=== PATIENT | female | born 1940 | race Caucasian/White ===

== ENCOUNTER 2019-04-17 15:39 | Inpatient (IN) ==
[2019-04-17] MEDS ORDERED: SODIUM CHLORIDE 0.9% 500 ML IV ONE (16:10)
--- NOTE | 2019-04-17 16:29 | Emergency Department Note ---
Entered by Amy Chawla acting as a scribe for History of Present Illness General Chief complaint: Illness Stated complaint: WEAKNESS, DIARRHEA, BACK PAIN Time Seen by Provider: 04/17/19 16:04 History of Present Illness Provider complaint: illness Onset (ago): week(s) 1 Pain Consistency: + other (episode) Maximum Pain Intensity: 5 Quality: + other (illness) Relieved By: + none Associated symptoms: + headaches (back of head), + weakness (can not walk anymore) and + other (nausea, constipation, dizziness, not hydrating well, been taking antidiarrheal medication and stool softeners, rectum feels too small to move her bowels ) The patient is a 79 year old female who presents to the ED with complaints of an episode of an illness that started 1 week ago. Per daughter, the patient has been much weaker than usual and has had diarrhea, constipation, nausea and dizziness. Per daughter, the patient is so weak that she can barely walk. The patient states that she also has a headache in the back of her head. The patient notes that she has also not been hydrating well. Per daughter, they have been giving the patient antidiarrheal medication but then they found out that the patient has been taking stool softeners on her own because she believes she is constipated. The patient states that she believes there is something wrong with her rectum because it feels too small to move her bowels. The patient notes that nothing is relieving her of these symptoms. Home Medications Home Medications Medication Instructions Recorded Confirmed Type aspirin 325 mg PO DAILY 04/17/19 04/17/19 History Allergies Allergy/AdvReac Type Severity Reaction Status Date / Time No Known Allergies Allergy Unverified 04/17/19 17:18 Past Med/Surg History Medical History Tremor Social History Preferred Language: Danish Communication Ability: Effective Medical Collections Representative Required: Yes Current Living Situation: Family Other Information That Helps Us Care for You: No Feels Safe at Home: Yes Smoking Status: Never smoker Hx Alcohol Use: No Hx Substance Use: No Review of Systems See HPI for pertinent positives & negatives. and A total of 10 systems reviewed and were otherwise negative Physical Exam Vital Signs Vital Signs - 24 hr 04/17/19 15:44 04/17/19 15:48 04/17/19 15:50 Temperature Temperature Source Pulse Rate 84 79 Pulse Rate [Finger] Pulse Rate from SpO2 Sensor 83 80 80 Pulse Rhythm [Finger] Respiratory Rate 26 H 14 Respiratory Effort / Characteristics Respiratory Depth Blood Pressure 135/75 Blood Pressure [Right Arm] Blood Pressure Mean 92 Blood Pressure Mean [Right Arm] Blood Pressure Position [Right Arm] Pulse Oximetry 97 94 Oxygen Delivery Method Room Air Room Air Room Air Sepsis Recent Fever Within 48 Hours Sepsis New/Unexplained Change in Mental Status Sepsis Action Taken by Nursing 04/17/19 15:53 04/17/19 16:00 04/17/19 16:01 Temperature 36.8 C Temperature Source Oral Pulse Rate 79 81 96 H Pulse Rate [Finger] 79 Pulse Rate from SpO2 Sensor 83 84 Pulse Rhythm [Finger] Respiratory Rate 19 16 24 Respiratory Effort / Characteristics Respiratory Depth Blood Pressure 135/75 110/70 Blood Pressure [Right Arm] 135/75 Blood Pressure Mean 95 74 Blood Pressure Mean [Right Arm] 95 Blood Pressure Position [Right Arm] Pulse Oximetry 96 99 95 Oxygen Delivery Method Room Air Room Air Room Air Sepsis Recent Fever Within 48 Hours No Sepsis New/Unexplained Change in Mental Status No Sepsis Action Taken by Nursing No Action Required 04/17/19 16:10 04/17/19 16:20 04/17/19 16:30 Temperature Temperature Source Pulse Rate 77 172 H 79 Pulse Rate [Finger] Pulse Rate from SpO2 Sensor 77 78 78 Pulse Rhythm [Finger] Respiratory Rate 20 22 23 Respiratory Effort / Characteristics Respiratory Depth Blood Pressure 113/70 Blood Pressure [Right Arm] Blood Pressure Mean 80 Blood Pressure Mean [Right Arm] Blood Pressure Position [Right Arm] Pulse Oximetry 97 97 97 Oxygen Delivery Method Room Air Room Air Room Air Sepsis Recent Fever Within 48 Hours Sepsis New/Unexplained Change in Mental Status Sepsis Action Taken by Nursing 04/17/19 16:40 04/17/19 16:57 04/17/19 17:00 Temperature Temperature Source Pulse Rate 77 76 78 Pulse Rate [Finger] 82 Pulse Rate from SpO2 Sensor 72 76 79 Pulse Rhythm [Finger] Respiratory Rate 17 18 19 Respiratory Effort / Characteristics Respiratory Depth Blood Pressure 118/75 Blood Pressure [Right Arm] 118/75 Blood Pressure Mean 85 Blood Pressure Mean [Right Arm] 89 Blood Pressure Position [Right Arm] Pulse Oximetry 97 99 99 Oxygen Delivery Method Room Air Room Air Room Air Sepsis Recent Fever Within 48 Hours Sepsis New/Unexplained Change in Mental Status Sepsis Action Taken by Nursing 04/17/19 17:01 04/17/19 17:10 04/17/19 17:20 Temperature Temperature Source Pulse Rate 74 115 H 72 Pulse Rate [Finger] Pulse Rate from SpO2 Sensor 74 Pulse Rhythm [Finger] Respiratory Rate 22 13 17 Respiratory Effort / Characteristics Respiratory Depth Blood Pressure Blood Pressure [Right Arm] Blood Pressure Mean Blood Pressure Mean [Right Arm] Blood Pressure Position [Right Arm] Pulse Oximetry 100 Oxygen Delivery Method Room Air Room Air Room Air Sepsis Recent Fever Within 48 Hours Sepsis New/Unexplained Change in Mental Status Sepsis Action Taken by Nursing 04/17/19 17:30 04/17/19 17:40 04/17/19 17:50 Temperature Temperature Source Pulse Rate 77 71 71 Pulse Rate [Finger] Pulse Rate from SpO2 Sensor Pulse Rhythm [Finger] Respiratory Rate 19 19 18 Respiratory Effort / Characteristics Respiratory Depth Blood Pressure Blood Pressure [Right Arm] Blood Pressure Mean Blood Pressure Mean [Right Arm] Blood Pressure Position [Right Arm] Pulse Oximetry Oxygen Delivery Method Room Air Room Air Room Air Sepsis Recent Fever Within 48 Hours Sepsis New/Unexplained Change in Mental Status Sepsis Action Taken by Nursing 04/17/19 17:59 04/17/19 18:00 04/17/19 18:01 Temperature Temperature Source Pulse Rate 72 74 74 Pulse Rate [Finger] 73 Pulse Rate from SpO2 Sensor 72 75 74 Pulse Rhythm [Finger] Respiratory Rate 18 17 20 Respiratory Effort / Characteristics Respiratory Depth Blood Pressure 114/65 124/51 L Blood Pressure [Right Arm] 114/65 Blood Pressure Mean 73 76 Blood Pressure Mean [Right Arm] 81 Blood Pressure Position [Right Arm] Pulse Oximetry 98 99 100 Oxygen Delivery Method Room Air Room Air Room Air Sepsis Recent Fever Within 48 Hours Sepsis New/Unexplained Change in Mental Status Sepsis Action Taken by Nursing 04/17/19 18:10 04/17/19 18:20 04/17/19 18:30 Temperature Temperature Source Pulse Rate 72 67 Pulse Rate [Finger] Pulse Rate from SpO2 Sensor 71 66 Pulse Rhythm [Finger] Respiratory Rate 20 16 20 Respiratory Effort / Characteristics Respiratory Depth Blood Pressure Blood Pressure [Right Arm] Blood Pressure Mean Blood Pressure Mean [Right Arm] Blood Pressure Position [Right Arm] Pulse Oximetry 97 100 Oxygen Delivery Method Room Air Room Air Room Air Sepsis Recent Fever Within 48 Hours Sepsis New/Unexplained Change in Mental Status Sepsis Action Taken by Nursing 04/17/19 18:40 04/17/19 18:50 04/17/19 19:00 Temperature Temperature Source Pulse Rate 70 73 66 Pulse Rate [Finger] Pulse Rate from SpO2 Sensor 71 73 67 Pulse Rhythm [Finger] Respiratory Rate 18 17 19 Respiratory Effort / Characteristics Respiratory Depth Blood Pressure Blood Pressure [Right Arm] Blood Pressure Mean Blood Pressure Mean [Right Arm] Blood Pressure Position [Right Arm] Pulse Oximetry 100 95 99 Oxygen Delivery Method Room Air Room Air Room Air Sepsis Recent Fever Within 48 Hours Sepsis New/Unexplained Change in Mental Status Sepsis Action Taken by Nursing 04/17/19 19:01 04/17/19 19:10 04/17/19 19:54 Temperature Temperature Source Pulse Rate 67 72 111 H Pulse Rate [Finger] Pulse Rate from SpO2 Sensor 68 71 71 Pulse Rhythm [Finger] Respiratory Rate 21 20 20 Respiratory Effort / Characteristics Respiratory Depth Blood Pressure 132/60 Blood Pressure [Right Arm] Blood Pressure Mean 72 Blood Pressure Mean [Right Arm] Blood Pressure Position [Right Arm] Pulse Oximetry 98 100 99 Oxygen Delivery Method Room Air Room Air Room Air Sepsis Recent Fever Within 48 Hours Sepsis New/Unexplained Change in Mental Status Sepsis Action Taken by Nursing 04/17/19 19:55 04/17/19 19:58 04/17/19 20:00 Temperature Temperature Source Pulse Rate 107 H 67 Pulse Rate [Finger] 89 Pulse Rate from SpO2 Sensor 68 Pulse Rhythm [Finger] Regular Respiratory Rate 23 20 18 Respiratory Effort / Characteristics Non-Labored Respiratory Depth Normal Blood Pressure 127/68 Blood Pressure [Right Arm] 127/68 Blood Pressure Mean 88 Blood Pressure Mean [Right Arm] 87 Blood Pressure Position [Right Arm] Standing Pulse Oximetry 100 100 Oxygen Delivery Method Room Air Room Air Room Air Sepsis Recent Fever Within 48 Hours Sepsis New/Unexplained Change in Mental Status Sepsis Action Taken by Nursing 04/17/19 20:10 04/17/19 20:20 04/17/19 20:30 Temperature Temperature Source Pulse Rate 86 71 69 Pulse Rate [Finger] Pulse Rate from SpO2 Sensor 69 Pulse Rhythm [Finger] Respiratory Rate 20 17 16 Respiratory Effort / Characteristics Respiratory Depth Blood Pressure Blood Pressure [Right Arm] Blood Pressure Mean Blood Pressure Mean [Right Arm] Blood Pressure Position [Right Arm] Pulse Oximetry 98 Oxygen Delivery Method Room Air Room Air Room Air Sepsis Recent Fever Within 48 Hours Sepsis New/Unexplained Change in Mental Status Sepsis Action Taken by Nursing 04/17/19 20:32 Temperature Temperature Source Pulse Rate 100 H Pulse Rate [Finger] Pulse Rate from SpO2 Sensor Pulse Rhythm [Finger] Respiratory Rate 23 Respiratory Effort / Characteristics Respiratory Depth Blood Pressure 149/65 H Blood Pressure [Right Arm] Blood Pressure Mean 115 Blood Pressure Mean [Right Arm] Blood Pressure Position [Right Arm] Pulse Oximetry Oxygen Delivery Method Room Air Sepsis Recent Fever Within 48 Hours Sepsis New/Unexplained Change in Mental Status Sepsis Action Taken by Nursing GENERAL: Awake, alert, fatigued-appearing, in no distress HENT: Normocephalic, atraumatic. Oropharynx with dry mucous membranes and otherwise unremarkable. EYES: Normal conjunctiva. Sclera non-icteric. EOMI. No nystamgus. PEARRL. NECK: Supple. No nuchal rigidity. FROM. No JVD. RESPIRATORY: Clear to auscultation bilaterally. CARDIAC: Regular rate, normal rhythm. Extremities warm and well perfused. Pulses equal. ABDOMEN: Soft, non-distended. No tenderness to palpation. No rebound or guarding. No masses. RECTAL: Deferred. MUSCULOSKELETAL: Chest examination reveals no tenderness. The back is symmetrical on inspection without obvious abnormality. There is no CVA tenderness to palpation. No joint edema. LOWER EXTREMITIES: Calves are equal size bilaterally and non-tender. No edema. No discoloration. NEURO: Normal sensorium. No sensory or motor deficits noted. SKIN: No rash or jaundice noted. Course Course 1611: Past medical records reviewed. The patient was evaluated in room A2. A complete history and physical exam was performed. 2020: I reevaluated the patient and she still appears to be uncomfortable. I updated her on the plan for admission and she verbally agrees and understands. 2042: I discussed the patient's case with Dr. Sarabjit Laureano, Hospitalist. He will evaluate the patient for further management. Consultations Consultation #1: I discussed the patient's case with Dr. Sarabjit Laureano, Hospitalist. He will evaluate the patient for further management. Time: 20:43 Administered Medications Acetaminophen (Tylenol) 650 mg PO Q4H PRN PRN Reason: pain/fever Stop: 05/17/19 23:26 Last Admin: 04/17/19 23:56 Dose: 650 mg Documented by: [id number] Discontinued Medications Sodium Chloride (Nss) 500 mls @ 999 mls/hr IV .Q31M ONE Stop: 12/20/19 16:40 Last Infusion: 04/17/19 17:47 Dose: 0 mls/hr Documented by: [id number] Admin: 04/17/19 17:15 Dose: 999 mls/hr Documented by: [id number] Ioversol (Optiray 320 100ml) 91 ml IV ONCE PRN PRN Reason: Interaction Checking Stop: 04/21/19 19:21 Last Admin: 04/17/19 19:22 Dose: 91 ml Documented by: [id number] Medical Decision Making Differential Diagnosis Differential diagnosis: Etiologies such as gastroenteritis, food borne illness, infections, appendicit is, diverticulitis, inflammatory bowel disease, obstruction, GI bleed, biliary pathology, cardiac process, intracranial process, as well as others were entertained. Medical Records Attestation: I reviewed the patient's medical records. Home Medications Current Medication List: was personally reviewed by me Laboratory Data Attestation: I reviewed the patient's lab results. Result diagrams: 04/17/19 17:10 04/17/19 17:10 Lab Results 04/17/19 04/17/19 04/17/19 Range/Units 17:10 17:10 18:20 WBC 10.34 (4.8-10.8) K/uL RBC 5.33 (4.2-5.4) M/uL Hgb 14.8 (12.0-16.0) g/dL Hct 45.1 (37-47) % MCV 84.6 (80-100) fL MCH 27.8 (25-34) pg MCHC 32.8 (32-36) g/dL RDW Std Deviation 44.9 (36.4-46.3) fL RDW Coeff of Sheryl 14.6 H (11.5-14.5) % Plt Count 270 (130-400) K/uL MPV 10.5 H (7.4-10.4) fL Immature Gran % (Auto) 0.2 % Neut % (Auto) 67.8 % Lymph % (Auto) 23.1 % [place] % (Auto) 7.4 % Eos % (Auto) 1.2 % Baso % (Auto) 0.3 % Immature Gran # (Auto) 0.02 (0.00-0.02) K/uL Neut # (Auto) 7.01 H (1.4-6.5) K/uL Lymph # (Auto) 2.39 (1.2-3.4) K/uL [place] # (Auto) 0.77 H (0.11-0.59) K/uL Eos # (Auto) 0.12 (0-0.5) K/uL Baso # (Auto) 0.03 (0-0.2) K/uL Sodium 141 (136-145) mmol/L Potassium 3.5 (3.5-5.1) mmol/L Chloride 106 (98-107) mmol/L Carbon Dioxide 30 (21-32) mmol/L Anion Gap 5.0 (3-11) BUN 16 (7-18) mg/dl Creatinine 1.09 (0.6-1.2) mg/dl Est Cr Clr Drug Dosing 43.7 ml/min Est GFR ( Amer) 56.3 Est GFR (Non-Af Amer) 48.6 BUN/Creatinine Ratio 14.8 (10-20) Glucose 84 (70-99) mg/dl Calcium 9.7 (8.5-10.1) mg/dl Phosphorus 3.4 (2.5-4.9) mg/dl Magnesium 2.5 H (1.8-2.4) mg/dl Total Bilirubin 0.5 (0.2-1) mg/dl AST 68 H (15-37) U/L ALT 65 (12-78) U/L Alkaline Phosphatase 87 (45-117) U/L Troponin I < 0.015 (0-0.045) ng/ml Total Protein 8.0 (6.4-8.2) gm/dl Albumin 4.0 (3.4-5.0) gm/dl Globulin 4.0 (2.5-4.0) gm/dl Albumin/Globulin Ratio 1.0 (0.9-2) Lipase 75 (73-393) U/L TSH 2.960 (0.300-4.500) uIu/ml Urine Color Dark Yellow Urine Appearance Clear (Clear) Urine pH 5.0 (4.5-7.5) Ur Specific [place] 1.023 (1.000-1.030) Urine Protein Negative (Negative) Urine Glucose (UA) Negative (Negative) Urine Ketones 1+ H (Negative) Urine Blood Negative (Negative) Urine Nitrite Negative (Negative) Urine Bilirubin Negative (Negative) Urine Urobilinogen Negative (Negative) Ur Leukocyte Esterase Negative (Negative) Stl C. diff Tox B Gene (Neg) 04/17/19 Range/Units 18:20 WBC (4.8-10.8) K/uL RBC (4.2-5.4) M/uL Hgb (12.0-16.0) g/dL Hct (37-47) % MCV (80-100) fL MCH (25-34) pg MCHC (32-36) g/dL RDW Std Deviation (36.4-46.3) fL RDW Coeff of Sheryl (11.5-14.5) % Plt Count (130-400) K/uL MPV (7.4-10.4) fL Immature Gran % (Auto) % Neut % (Auto) % Lymph % (Auto) % [place] % (Auto) % Eos % (Auto) % Baso % (Auto) % Immature Gran # (Auto) (0.00-0.02) K/uL Neut # (Auto) (1.4-6.5) K/uL Lymph # (Auto) (1.2-3.4) K/uL [place] # (Auto) (0.11-0.59) K/uL Eos # (Auto) (0-0.5) K/uL Baso # (Auto) (0-0.2) K/uL Sodium (136-145) mmol/L Potassium (3.5-5.1) mmol/L Chloride (98-107) mmol/L Carbon Dioxide (21-32) mmol/L Anion Gap (3-11) BUN (7-18) mg/dl Creatinine (0.6-1.2) mg/dl Est Cr Clr Drug Dosing ml/min Est GFR ( Amer) Est GFR (Non-Af Amer) BUN/Creatinine Ratio (10-20) Glucose (70-99) mg/dl Calcium (8.5-10.1) mg/dl Phosphorus (2.5-4.9) mg/dl Magnesium (1.8-2.4) mg/dl Total Bilirubin (0.2-1) mg/dl AST (15-37) U/L ALT (12-78) U/L Alkaline Phosphatase (45-117) U/L Troponin I (0-0.045) ng/ml Total Protein (6.4-8.2) gm/dl Albumin (3.4-5.0) gm/dl Globulin (2.5-4.0) gm/dl Albumin/Globulin Ratio (0.9-2) Lipase (73-393) U/L TSH (0.300-4.500) uIu/ml Urine Color Urine Appearance (Clear) Urine pH (4.5-7.5) Ur Specific [place] (1.000-1.030) Urine Protein (Negative) Urine Glucose (UA) (Negative) Urine Ketones (Negative) Urine Blood (Negative) Urine Nitrite (Negative) Urine Bilirubin (Negative) Urine Urobilinogen (Negative) Ur Leukocyte Esterase (Negative) Stl C. diff Tox B Gene Negative Cdiff Gene (Neg) Imaging Data Radiologist's Impression: Radiology results as stated below per my review and th e radiologist's interpretation: XR chest 1V portable HISTORY: 79 years-old Female Chest Pain acute atypical chest pain COMPARISON: None available TECHNIQUE: Portable AP view of the chest FINDINGS: Cardiomediastinal and hilar silhouettes are within normal limits. No pneumothorax, pleural effusion, focal airspace consolidation or overt pulmonary edema. Degenerative changes of the shoulders and spine. Calcified plaque of the thoracic aortic arch. IMPRESSION: No acute process. ACT 112: Negative or not required by law. The above report was generated using voice recognition software. It may contain grammatical, syntax or spelling errors. Electronically signed by: Kye Cao M.D. 04/17/2019 4:[address] head/brain wo con CLINICAL HISTORY: 79 years-old Female with weakness. Acute weakness with diarrhea TECHNIQUE: Multiple axial CT images of the head were obtained without contrast. A dose lowering technique was utilized adhering to the principles of ALARA. CT DOSE: 1525.67 mGy.cm COMPARISON: None. FINDINGS: No acute intracranial hemorrhage, midline shift, intracranial mass, hydro cephalus, territorial ischemia or abnormal extra-axial collection. Age-related involutional changes. Mild patchy white matter hypodensity suggest chronic microvascular ischemic disease. Cerebral vascular calcifications also noted. The calvarium is intact. The paranasal sinuses, mastoid air cells, and middle ear cavities are clear. IMPRESSION: No acute intracranial abnormality. ACT 112: Negative or not required by law. The above report was generated using voice recognition software. It may contain grammatical, syntax or spelling errors. Electronically signed by: Kye Cao M.D. 04/17/2019 7:32 PM [address] AND PELVIS CT WITH IV CONTRAST HISTORY: Acute weakness with diarrhea weakness, diarrhea TECHNIQUE: Multiaxial CT images of the abdomen and pelvis were performed following the IV administration of 91 cc of Optiray 320, A dose lowering technique was utilized adhering to the principles of ALARA. COMPARISON STUDY: None. FINDINGS: There is mild subsegmental bibasilar atelectasis. Mild right hemidiaphragmatic elevation. No pneumatosis or pneumoperitoneum. Imaged inferior cardiac chambers are upper limits of normal in size. Trace pericardial effusion. Mild generalized pancreatic atrophy. Spleen, adrenal glands, gallbladder and liver appear unremarkable. Patency of the hepatic and portal veins. No biliary ductal dilation. a there are 2 calculi of the inferior pole right kidney measuring up to 4 mm. Probable cyst of the inferior pole right kidney, 10 mm. Or ureteral calculi or obstructive uropathy. Partially decompressed bladder. Heterogeneous appearance of the uterine fundus with abnormally thickened fundal endometrium measuring up to 2.5 cm. Moderate mixed plaque of the abdominal aorta without aneurysm. No adenopathy. There is no bowel obstruction. Moderate formed stool of the rectum with mild perirectal inflammation and rectal wall thickening. There is mild colonic diverticulosis without acute diverticulitis. Normal appendix. Mild diastases recti. The breast parenchyma and soft tissues are within normal limits. Hardware of the right proximal femur is noted with adjacent heterotopic ossifications. Demineralized appearance of the bones. 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 Degenerative changes are noted about the hips and spine. IMPRESSION: 1. Moderate sized stool ball of the rectum is noted with mild rectal wall thickening and perirectal inflammation suspicious for stercoral proctitis. Correlate clinically. 2. No bowel obstruction. 3. Normal appendix. 4. Heterogeneous appearance of the fundal uterus with pathologically thickened endometrium. Follow-up gynecologic consultation with hysteroscopy recommended. 5. Mild colonic diverticulosis without acute diverticulitis. 6. Nonobstructing right nephrolithiasis. ACT 112: Negative or not required by law. The above report was generated using voice recognition software. It may contain grammatical, syntax or spelling errors. Electronically signed by: Kye Cao M.D. 04/17/2019 7:43 PM ECG Data Attestation: I personally reviewed and interpreted this ECG as follows: Indication: + weakness Rate (beats per minute): 74 Rhythm: + normal sinus ECG [place]: + Normal ECG ST segments: no ST depression and no ST elevation ECG Findings: no PACs and no PVCs Blood Pressure Blood Pressure Findings: Elevated blood pressure Blood Pressure Disposition: further management by hospitalist BUZZ Narrative The patient is a pleasant 79-year-old woman who presents emerged department coming by her family with generalized weakness where she is barely able to walk in the setting of having diarrhea over the past 2 days in the setting of previously having constipation where she took medication for this but then subsequently felt constipated and started taking a stool softener per HPI. On arrival the patient is fatigued appearing but no acute distress, afebrile stable vital signs. Patient appears clinically dry. She is moving all extremities equally. Has no focal neuro deficits. I discussed with the patient given that she is unable to walk safely at home we will likely end up admitting or pursuing possible rehab placement. She was agreeable with either of these options. EKG without overt acute ischemia. Chest x-ray negative for acute process. WBC, H/H and platelets within normal limits. Chemistry without acidosis. AST 68, nonspecific. Otherwise electrolytes and LFTs unremarkable. Troponin negative/undetectable. UA negative for infection. However with 1+ ketones consistent with the patient's clinical dry appearance. CT head negative for acute process. CT abdomen pelvis demonstrates moderate sized stool ball in the rectum with associated rectal wall thickening consistent with stercoral proctitis. Otherwise, no acute findings. There is incidental heterogenous appearance of the uterine fundus which will require outpatient follow-up. The patient was reevaluated and she was feeling improved after IV fluid hydration. She was ordered for enema. However the past family did feel that she was unwell/too weak for home. Unfortunately there was no ability to place the patient tonight given the high volume admissions at [facility]. However they would be able to accept her tomorrow. Thus, family requesting admission until able to enter into rehab. Case was discussed with Dr. Cox, [facility] hospitalist, who will evaluate the patient for admission. Impression & Plan Generalized weakness, Dehydration, Constipation Discharge Plan Visit Data *Final* Discharge Date/Time: 04/17/19 22:40 Chief Complaint: Illness Stated Complaint: WEAKNESS, DIARRHEA, BACK PAIN ED Provider: Patrick Rao Discharge Problem: Generalized weakness, Dehydration, Constipation Patient Disposition: Admitted As Inpatient Discharge Instructions Interventions: ED Discharge Assessment Last Done: 04/17/19 22:40 Discharge Problem: Constipation Qualifiers: Constipation type: unspecified constipation type Qualified Code(s): K59.00 - Constipation, unspecified The scribe's documentation has been prepared under my direction and personally reviewed by me in its entirety. I confirm that the note above accurately reflects all work, treatment, procedures, and medical decision making performed by me.
[2019-04-17 17:22] LABS: Basophils # (auto) 0.03 K/uL (0-0.2); Basophils % (auto) 0.3 %; Eosinophils # (auto) 0.12 K/uL (0-0.5); Eosinophils % (auto) 1.2 %; Hematocrit (blood only) 45.1 % (37-47); Hemoglobin 14.8 g/dL (12.0-16.0); Immature Granulocytes # (auto) 0.02 K/uL (0.00-0.02); Immature Granulocytes % (auto) 0.2 %; Lymphocytes # (auto) 2.39 K/uL (1.2-3.4); Lymphocytes % (auto) 23.1 %; Mean Corpuscular Hemoglobin 27.8 pg (25-34); Mean Corpuscular Hgb Conc 32.8 g/dL (32-36); Mean Corpuscular Volume 84.6 fL (80-100); Mean Platelet Volume 10.5 fL (7.4-10.4); Monocytes # (auto) 0.77 K/uL (0.11-0.59); Monocytes % (auto) 7.4 %; Neutrophils # (auto) 7.01 K/uL (1.4-6.5); Neutrophils % (auto) 67.8 %; Platelet Count 270 K/uL (130-400); RDW Coefficient of Variation 14.6 % (11.5-14.5); RDW Standard Deviation 44.9 fL (36.4-46.3); Red Blood Count 5.33 M/uL (4.2-5.4); White Blood Count 10.34 K/uL (4.8-10.8)
[2019-04-17 17:42] LABS: Alanine Aminotransferase 65 U/L (12-78); Aspartate Aminotransferase 68 U/L (15-37); BUN Creatinine Ratio 14.8 (10-20); Blood Urea Nitrogen 16 mg/dl (7-18); Calcium 9.7 mg/dl (8.5-10.1); Carbon Dioxide 30 mmol/L (21-32); Chloride 106 mmol/L (98-107); Creatinine Clr Calc Pharmacy 43.7 ml/min; Est GFR (African American) 56.3; Est GFR (Non-African American) 48.6; Glucose 84 mg/dl (70-99); Lipase 75 U/L (73-393); Magnesium 2.5 mg/dl (1.8-2.4); Potassium 3.5 mmol/L (3.5-5.1); Sodium 141 mmol/L (136-145)
[2019-04-17 17:53] LABS: Alkaline Phosphatase 87 U/L (45-117); Bilirubin,Total 0.5 mg/dl (0.2-1); Phosphorus 3.4 mg/dl (2.5-4.9); Troponin I < 0.015 ng/ml (0-0.045)
[2019-04-17 18:30] LABS: Appearance Urine Clear (Clear); Blood Urine Negative (Negative); Color Urine Dark Yellow; Glucose Urine UA Negative (Negative); Ketones Urine 1+ (Negative); Leukocyte Esterase Urine Negative (Negative); Nitrite Urine Negative (Negative); Protein Urine Negative (Negative); Specific Gravity Urine 1.023 (1.000-1.030); Urobilinogen Urine Negative (Negative)
[2019-04-17 18:35] LABS: Bilirubin Urine Negative (Negative); Ictotest Urine Negative (Negative)
[2019-04-17] MEDS ORDERED: IOVERSOL 100ml IV PRN (19:22)
--- NOTE | 2019-04-17 19:33 | CT Scan Report ---
CT head/brain wo con CLINICAL HISTORY: 79 years-old Female with weakness. Acute weakness with diarrhea TECHNIQUE: Multiple axial CT images of the head were obtained without contrast. A dose lowering tech nique was utilized adhering to the principles of ALARA. CT DOSE: 1525.67 mGy.cm COMPARISON: None. FINDINGS: No acute intracranial hemorrhage, midline shift, intracranial mass, hydrocephalus, territorial ischem ia or abnormal extra-axial collection. Age-related involutional changes. Mild patchy white matter hyp odensity suggest chronic microvascular ischemic disease. Cerebral vascular calcifications also noted. The calvarium is intact. The paranasal sinuses, mastoid air cells, and middle ear cavities are clear . IMPRESSION: No acute intracranial abnormality. ACT 112: Negative or not required by law. The above report was generated using voice recognition software. It may contain grammatical, syntax o r spelling errors. Electronically signed by: Kye Cao M.D. 04/17/2019 7:32 PM
--- NOTE | 2019-04-17 19:44 | CT Scan Report ---
ABDOMEN AND PELVIS CT WITH IV CONTRAST HISTORY: Acute weakness with diarrhea weakness, diarrhea TECHNIQUE: Multiaxial CT images of the abdomen and pelvis were performed following the IV administrat ion of 91 cc of Optiray 320, A dose lowering technique was utilized adhering to the principles of AL LISSA. COMPARISON STUDY: None. FINDINGS: There is mild subsegmental bibasilar atelectasis. Mild right hemidiaphragmatic elevation. No pneumato sis or pneumoperitoneum. Imaged inferior cardiac chambers are upper limits of normal in size. Trace p ericardial effusion. Mild generalized pancreatic atrophy. Spleen, adrenal glands, gallbladder and maria isabel er appear unremarkable. Patency of the hepatic and portal veins. No biliary ductal dilation. a there are 2 calculi of the inferior pole right kidney measuring up to 4 mm. Probable cyst of the in ferior pole right kidney, 10 mm. Or ureteral calculi or obstructive uropathy. Partially decompressed bladder. Heterogeneous appearance of the uterine fundus with abnormally thickened fundal endometrium measuring up to 2.5 cm. Moderate mixed plaque of the abdominal aorta without aneurysm. No adenopathy. There is no bowel obstruction. Moderate formed stool of the rectum with mild perirectal inflammation and rectal wall thickening. There is mild colonic diverticulosis without acute diverticulitis. Génesis l appendix. Mild diastases recti. The breast parenchyma and soft tissues are within normal limits. Arora rdware of the right proximal femur is noted with adjacent heterotopic ossifications. Demineralized ap pearance of the bones. 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 Degenerative changes are noted about t he hips and spine. IMPRESSION: 1. Moderate sized stool ball of the rectum is noted with mild rectal wall thickening and perirectal i nflammation suspicious for stercoral proctitis. Correlate clinically. 2. No bowel obstruction. 3. Normal appendix. 4. Heterogeneous appearance of the fundal uterus with pathologically thickened endometrium. Follow-up gynecologic consultation with hysteroscopy recommended. 5. Mild colonic diverticulosis without acute diverticulitis. 6. Nonobstructing right nephrolithiasis. ACT 112: Negative or not required by law. The above report was generated using voice recognition software. It may contain grammatical, syntax o r spelling errors. Electronically signed by: Kye Cao M.D. 04/17/2019 7:43 PM
--- NOTE | 2019-04-17 22:04 | History & Physical Report ---
Date of Service April 17, 2019 Assessment & Plan (1) Abdominal discomfort: Secondary to postobstructive diarrhea Significant improvement after enema administration /fecal manual disimpaction at the ER Parkinson's dementia as per family Patient/family not interested in Sinemet recommendation by neurologist on outpatient visit a few months ago. Leg swelling rule out DVT Thickened endometrium, incidental finding on CT Mild clinical dehydration Possible functional disability OBS GMF Bowel regimen IVF LE venous Dopplers rule out DVT PT OT eval Outpatient [facility] evaluation for thickened endometrium on CT DVT prophylaxis Lovenox subcu Full code Patient's granddaughter requesting updates providers. Ms. Blanca Ashby, contact #[phone]. History of Present Illness Chief Complaint: Abdominal pain Primary Care Provider: Chang Abreu MD History obtained from patient, family, and records. Patient is a fair historian. Medical history significant for Parkinson's dementia as per family. Few days history of achy lower abdominal discomfort with nausea, poor appetite. Patient initially constipated followed by loose stools. Poor appetite. No chest pain, no S OB. Patient brought to the ER by family. Medical History as above Surgical History : Hip surgery Family History : Uterine cancer Personal/Social history : Non-smoker, no EtOH intake, retired [employer], prior [employer] business, lives with son Allergies Allergy/AdvReac Type Severity Reaction Status Date / Time No Known Allergies Allergy Unverified 04/17/19 17:18 Home Medications Home Medications Medication Instructions Recorded Confirmed Type aspirin 325 mg PO DAILY 04/17/19 04/17/19 History Past Med/Surg History Medical History Tremor Social History Preferred Language: Ivorian Communication Ability: Effective Automotive Sales Specialist Required: Yes Current Living Situation: Family Other Information That Helps Us Care for You: No Feels Safe at Home: Yes Smoking Status: Never smoker Hx Alcohol Use: No Hx Substance Use: No Review of Systems Review of Systems: As per HPI, all 10 systems reviewed, all other ROS negative Physical Exam Physical Exam: GENERAL: Comfortable, oriented to month, no respiratory distress SKIN: Normal color, warm HEENT: Bespectacled, [place] palpebral conjunctivae, no ptosis, dry buccal mucosa NECK : Supple, short neck, no tenderness CHEST : CTA, no tenderness HEART : RRR, no obvious murmurs ABDOMEN: Some distention, nontender EXTREMITIES : Bilateral LE swelling R> L, no LE tenderness, no other conspicuous deformities noted NEUROLOGIC : Coherent, no facial asymmetry, rest tremors, no other gross focality Results & Data Vital Signs (Past 12 Hours) Vital Signs Temp Pulse Pulse Resp BP BP Pulse Ox 04/17/19 19:58 89 20 127/68 100 04/17/19 17:59 73 18 114/65 98 04/17/19 17:00 82 17 118/75 100 04/17/19 15:53 36.8 C 79 79 19 135/75 135/75 96 Laboratory Results Laboratory Results WBC 10.34 K/uL (4.8-10.8) 04/17/19 17:10 RBC 5.33 M/uL (4.2-5.4) 04/17/19 17:10 Hgb 14.8 g/dL (12.0-16.0) 04/17/19 17:10 Hct 45.1 % (37-47) 04/17/19 17:10 MCV 84.6 fL (80-100) 04/17/19 17:10 MCH 27.8 pg (25-34) 04/17/19 17:10 MCHC 32.8 g/dL (32-36) 04/17/19 17:10 RDW Std Deviation 44.9 fL (36.4-46.3) 04/17/19 17:10 RDW Coeff of Sheryl 14.6 % (11.5-14.5) H 04/17/19 17:10 Plt Count 270 K/uL (130-400) 04/17/19 17:10 MPV 10.5 fL (7.4-10.4) H 04/17/19 17:10 Immature Gran % (Auto) 0.2 % 04/17/19 17:10 Neut % (Auto) 67.8 % 04/17/19 17:10 Lymph % (Auto) 23.1 % 04/17/19 17:10 [place] % (Auto) 7.4 % 04/17/19 17:10 Eos % (Auto) 1.2 % 04/17/19 17:10 Baso % (Auto) 0.3 % 04/17/19 17:10 Immature Gran # (Auto) 0.02 K/uL (0.00-0.02) 04/17/19 17:10 Neut # (Auto) 7.01 K/uL (1.4-6.5) H 04/17/19 17:10 Lymph # (Auto) 2.39 K/uL (1.2-3.4) 04/17/19 17:10 [place] # (Auto) 0.77 K/uL (0.11-0.59) H 04/17/19 17:10 Eos # (Auto) 0.12 K/uL (0-0.5) 04/17/19 17:10 Baso # (Auto) 0.03 K/uL (0-0.2) 04/17/19 17:10 Sodium 141 mmol/L (136-145) 04/17/19 17:10 Potassium 3.5 mmol/L (3.5-5.1) 04/17/19 17:10 Chloride 106 mmol/L (98-107) 04/17/19 17:10 Carbon Dioxide 30 mmol/L (21-32) 04/17/19 17:10 Anion Gap 5.0 (3-11) 04/17/19 17:10 BUN 16 mg/dl (7-18) 04/17/19 17:10 Creatinine 1.09 mg/dl (0.6-1.2) 04/17/19 17:10 Est Cr Clr Drug Dosing 43.7 ml/min 04/17/19 17:10 Est GFR ( Amer) 56.3 04/17/19 17:10 Est GFR (Non-Af Amer) 48.6 04/17/19 17:10 BUN/Creatinine Ratio 14.8 (10-20) 04/17/19 17:10 Glucose 84 mg/dl (70-99) 04/17/19 17:10 Calcium 9.7 mg/dl (8.5-10.1) 04/17/19 17:10 Phosphorus 3.4 mg/dl (2.5-4.9) 04/17/19 17:10 Magnesium 2.5 mg/dl (1.8-2.4) H 04/17/19 17:10 Total Bilirubin 0.5 mg/dl (0.2-1) 04/17/19 17:10 AST 68 U/L (15-37) H 04/17/19 17:10 ALT 65 U/L (12-78) 04/17/19 17:10 Alkaline Phosphatase 87 U/L (45-117) 04/17/19 17:10 Troponin I < 0.015 ng/ml (0-0.045) 04/17/19 17:10 Total Protein 8.0 gm/dl (6.4-8.2) 04/17/19 17:10 Albumin 4.0 gm/dl (3.4-5.0) 04/17/19 17:10 Globulin 4.0 gm/dl (2.5-4.0) 04/17/19 17:10 Albumin/Globulin Ratio 1.0 (0.9-2) 04/17/19 17:10 Lipase 75 U/L (73-393) 04/17/19 17:10 TSH 2.960 uIu/ml (0.300-4.500) 04/17/19 17:10 Urine Color Dark Yellow 04/17/19 18:20 Urine Appearance Clear (Clear) 04/17/19 18:20 Urine pH 5.0 (4.5-7.5) 04/17/19 18:20 Ur Specific [place] 1.023 (1.000-1.030) 04/17/19 18:20 Urine Protein Negative (Negative) 04/17/19 18:20 Urine Glucose (UA) Negative (Negative) 04/17/19 18:20 Urine Ketones 1+ (Negative) H 04/17/19 18:20 Urine Blood Negative (Negative) 04/17/19 18:20 Urine Nitrite Negative (Negative) 04/17/19 18:20 Urine Bilirubin Negative (Negative) 04/17/19 18:20 Urine Urobilinogen Negative (Negative) 04/17/19 18:20 Ur Leukocyte Esterase Negative (Negative) 04/17/19 18:20 Stl C. diff Tox B Gene Negative Cdiff Gene (Neg) 04/17/19 18:[address] head: No acute intracranial abnormality CT abdomen pelvis: 1. Moderate sized stool ball of the rectum is noted with mild rectal wall thickening and perirectal inflammation suspicious for stercoral proctitis. Correlate clinically. 2. No bowel obstruction. 3. Normal appendix. 4. Heterogeneous appearance of the fundal uterus with pathologically thickened endometrium. Follow-up gynecologic consultation with hysteroscopy recommended. 5. Mild colonic diverticulosis without acute diverticulitis. 6. Nonobstructing right nephrolithiasis. Chest x-ray: No acute process
[2019-04-17] MEDS ORDERED: PROMETHAZINE HCL 12.5 MG in SODIUM CHLORIDE 0.9% 50 ML IV PRN (23:27)
[2019-04-17] MEDS: ACETAMINOPHEN 325 MG TAB PO PRN (23:56)
--- NOTE | 2019-04-18 05:09 | Ultrasound Report ---
US venous doppler LE CLINICAL HISTORY: 79 years-old Female presenting with bilateral lower extremity swelling. TECHNIQUE: Real-time grayscale and color and spectral Doppler ultrasound imaging of the veins of the bilateral lower extremities was performed. Compression and augmentation were also utilized. COMPARISON: None. FINDINGS: RIGHT: Common femoral vein: Patent. Greater saphenous vein (superficial): Patent. Deep femoral vein: Patent. Femoral vein: Patent. Popliteal vein: Patent. Calf veins: Patent. LEFT: Common femoral vein: Patent. Greater saphenous vein (superficial): Patent. Deep femoral vein: Patent. Femoral vein: Patent. Popliteal vein: Patent. Calf veins: Patent. Other: None. IMPRESSION: No evidence of deep venous thrombosis. ACT 112: Negative or not required by law. Electronically signed by: Harvey Valdes M.D. 04/18/2019 5:08 AM
[2019-04-18 06:07] LABS: Basophils # (auto) 0.03 K/uL (0-0.2); Basophils % (auto) 0.3 %; Eosinophils # (auto) 0.26 K/uL (0-0.5); Eosinophils % (auto) 2.9 %; Hematocrit (blood only) 40.1 % (37-47); Hemoglobin 12.8 g/dL (12.0-16.0); Immature Granulocytes # (auto) 0.01 K/uL (0.00-0.02); Immature Granulocytes % (auto) 0.1 %; Lymphocytes # (auto) 2.11 K/uL (1.2-3.4); Lymphocytes % (auto) 23.2 %; Mean Corpuscular Hemoglobin 27.2 pg (25-34); Mean Corpuscular Hgb Conc 31.9 g/dL (32-36); Mean Corpuscular Volume 85.3 fL (80-100); Monocytes # (auto) 0.79 K/uL (0.11-0.59); Monocytes % (auto) 8.7 %; Neutrophils # (auto) 5.89 K/uL (1.4-6.5); Neutrophils % (auto) 64.8 %; Platelet Count 227 K/uL (130-400); RDW Coefficient of Variation 14.6 % (11.5-14.5); RDW Standard Deviation 45.5 fL (36.4-46.3); White Blood Count 9.09 K/uL (4.8-10.8)
[2019-04-18] MEDS: ASPIRIN 325 MG ECTAB PO SCH (07:39)
[2019-04-18] MEDS: DOCUSATE SODIUM 100 MG CAP PO SCH (07:39)
[2019-04-18] MEDS: ENOXAPARIN INJ 30 MG/0.3 ML SYR SQ SCH (07:44)
[2019-04-18] MEDS ORDERED: ASPIRIN 325 MG ECTAB PO ONE (14:06)
--- NOTE | 2019-04-18 14:08 | Hospitalist Progress Note ---
Date of Service April 18, 2019 Assessment & Plan (1) Abdominal discomfort: Resolved after resolution of constipation. (2) Generalized weakness: Improving, may be related to recent constipation issues. Urine was checked on admission and was negative. Chest x-ray was negative for evidence of infection. PT/OT to evaluate prior to discharge. May be able to avoid rehab as she seems to be improving significantly today. (3) Constipation: Resolved. (4) Thickened endometrium: I spoke with on-call computed tomography technician who recommended an intravaginal pelvic ultrasound to further assess this. Threshold for outpatient OB consult would be 5 mm or greater of thickness. I discussed this with the patient who is agreeable to the ultrasound. Family would like to present for this so currently order is on hold. (5) Parkinson's disease dementia: Reported per family. (6) Tremor: Related to Parkinson's disease versus benign essential tremor. (7) DVT prophylaxis: Lovenox Full code Disposition-pending PT/OT recommendations Any Ramirez DO [facility]ist Subjective 79-year-old female presented with severe constipation for 2 days in addition to generalized weakness. She was given an enema overnight and feels 100% better per her report today. She denies any abdominal pain and is tolerating p.o. Per nursing staff she is slightly wobbly when getting out of bed but once up she appears to be ambulating quite well. At home she ambulates independently and she lives with her son. I did discuss the abnormal CT findings with the patient especially regarding the thickened endometrium. I shared with her the recommendation of the computed tomography technician that she should have a pelvic ultrasound while admitted. She agreed to this and understands this is an intravaginal procedure. I did speak with her daughter however who asked me not to order the study until she was able to have someone here with the patient. She also wanted to discuss moving forward with the work-up of this thickened endometrium with her sisters. I explained that it is ultimately up to the patient to decide this and she verbalized understanding. Holding on the order until further talking with the daughter about when she can have somebody here. Review of Systems Review of Systems: All systems reviewed & are unremarkable except as noted in HPI & below Physical Exam Physical Exam: CONSTITUTIONAL: WNWD, vitals as above, generally well-appea ring EYES: normal conjunctivae, no scleral icterus ENT: MMM RESPIRATORY: clear to auscultation bilaterally, no crackles, rales or wheezes, normal respiratory effort CARDIOVASCULAR: regular rate and rhythm, S1 and 2 heard without murmurs, gallops or rubs, no JVD, no peripheral edema GASTROINTESTINAL: normal bowel sounds, soft, nontender, nondistended MUSCULOSKELETAL: strength 5/5 throughout, head is normocephalic and atraumatic SKIN: warm and dry NEUROLOGIC: CN 2-12 grossly intact, normal cognition, normal speech, +resting tremor that gets better with movement. PSYCHIATRIC: alert cooperative and oriented to person, place and time. Results & Data Vital Signs (Past 12 Hours) Vital Signs Temp Pulse Resp BP Pulse Ox 04/18/19 07:20 36.9 C 62 18 107/60 97 Laboratory Results Short CBC 04/17/19 04/18/19 Range/Units 17:10 05:15 WBC 10.34 9.09 (4.8-10.8) K/uL Hgb 14.8 12.8 (12.0-16.0) g/dL Hct 45.1 40.1 (37-47) % Plt Count 270 227 (130-400) K/uL BMP 04/17/19 17:10 Sodium 141 Potassium 3.5 Chloride 106 Carbon Dioxide 30 BUN 16 Creatinine 1.09 Glucose 84 Calcium 9.7 Cardiac Enzymes 04/17/19 Range/Units 17:10 Troponin I < 0.015 (0-0.045) ng/ml Liver Function 04/17/19 Range/Units 17:10 Total Bilirubin 0.5 (0.2-1) mg/dl AST 68 H (15-37) U/L ALT 65 (12-78) U/L Alkaline Phosphatase 87 (45-117) U/L Albumin 4.0 (3.4-5.0) gm/dl Urine 04/17/19 Range/Units 18:20 Urine Color Dark Yellow Urine Appearance Clear (Clear) Urine pH 5.0 (4.5-7.5) Ur Specific [place] 1.023 (1.000-1.030) Urine Protein Negative (Negative) Urine Glucose (UA) Negative (Negative) Medications Administered Current Inpatient Medications Acetaminophen (Tylenol) 650 mg PO Q4H PRN PRN Reason: pain/fever Stop: 05/17/19 23:26 Last Admin: 04/17/19 23:56 Dose: 650 mg Documented by: Aspirin (Ecotrin) 325 mg PO DAILY [facility] [place] Stop: 05/18/19 08:59 Last Admin: 04/18/19 07:39 Dose: 325 mg Documented by: Aspirin (Ecotrin) 325 mg PO ONE ONE Stop: 04/18/19 14:07 Docusate Sodium (Colace) 100 mg PO DAILY [facility] [place] Stop: 05/18/19 08:59 Last Admin: 04/18/19 07:39 Dose: Not Given Documented by: Enoxaparin Sodium (Lovenox) 30 mg SQ QAM [facility] Stop: 05/18/19 08:59 Last Admin: 04/18/19 07:44 Dose: Not Given Documented by: Promethazine HCl 12.5 mg/ (Sodium Chloride) 50.5 mls @ 202 mls/hr IV Q6H PRN PRN Reason: Nausea And Vomiting Stop: 05/17/19 23:26 (1) Constipation Constipation type: unspecified constipation type Qualified Code(s): K59.00 - Constipation, unspecified
[2019-04-18] MEDS: ACETAMINOPHEN 325 MG TAB PO PRN (19:47)
[2019-04-19 06:04] LABS: Hematocrit (blood only) 39.4 % (37-47); Hemoglobin 12.2 g/dL (12.0-16.0); Mean Corpuscular Hemoglobin 26.9 pg (25-34); Mean Corpuscular Volume 86.8 fL (80-100); Mean Platelet Volume 11.1 fL (7.4-10.4); Platelet Count 210 K/uL (130-400); RDW Coefficient of Variation 14.7 % (11.5-14.5); RDW Standard Deviation 46.6 fL (36.4-46.3); Red Blood Count 4.54 M/uL (4.2-5.4); White Blood Count 5.32 K/uL (4.8-10.8)
[2019-04-19 06:39] LABS: Calcium 8.8 mg/dl (8.5-10.1); Creatinine Clr Calc Pharmacy 51.9 ml/min; Est GFR (African American) 77.2; Est GFR (Non-African American) 66.6; Potassium 3.7 mmol/L (3.5-5.1)
[2019-04-19] MEDS: ASPIRIN 325 MG ECTAB PO SCH (08:16)
[2019-04-19] MEDS: ENOXAPARIN INJ 30 MG/0.3 ML SYR SQ SCH (08:17)
[2019-04-19] MEDS: DOCUSATE SODIUM 100 MG CAP PO SCH (08:17)
--- NOTE | 2019-04-19 23:29 | Hospitalist Progress Note ---
Date of Service April 19, 2019 Assessment & Plan (1) Abdominal discomfort: Resolved after resolution of constipation. (2) Generalized weakness: Continues to improve, may be related to recent constipation issues. Urine was checked on admission and was negative. Chest x-ray was negative for evidence of infection. PT/OT evaluation recommends home with Home Heall[facility]. (3) Constipation: Resolved. (4) Thickened endometrium: I spoke with on-call etl manager who recommended an intravaginal pelvic ultrasound to further assess this. Threshold for outpatient OB consult would be 5 mm or greater of thickness. I discussed this with the patient who is agreeable to the ultrasound. Family would like to proceed so this was ordered. (5) Parkinson's disease dementia: Reported per family. (6) Tremor: Related to Parkinson's disease versus benign essential tremor. (7) DVT prophylaxis: Lovenox Full code Disposition-pending pelvic us results. Plan for dc to home with Home Health for PT/OT Any Ramirez DO [facility] Hospitalist Subjective Seen earlier this morning and she is doing well in general No abdominal pain Denies any lightheadedness with walking and is ambulating to and from the bathroom. Daughters are present at bedside. Discussed pelvic us and all are ok with this prior to discharge. PT felt safe to return home. Daughter prefers some HH for PT/OT for patient at discharge. Review of Systems Review of Systems: All systems reviewed & are unremarkable except as noted in HPI & below Physical Exam Physical Exam: CONSTITUTIONAL: WNWD, vitals as above, generally well- appearing EYES: normal conjunctivae, no scleral icterus ENT: MMM RESPIRATORY: clear to auscultation bilaterally, no crackles, rales or wheezes, normal respiratory effort CARDIOVASCULAR: regular rate and rhythm, S1 and 2 heard without murmurs, gallops or rubs, no JVD, no peripheral edema GASTROINTESTINAL: normal bowel sounds, soft, nontender, nondistended MUSCULOSKELETAL: strength 5/5 throughout, head is normocephalic and atraumatic SKIN: warm and dry NEUROLOGIC: CN 2-12 grossly intact, normal cognition, normal speech, +resting tremor that gets better with movement. PSYCHIATRIC: alert cooperative and oriented to person, place and time. Results & Data Vital Signs (Past 12 Hours) Vital Signs Temp Pulse Pulse Resp BP Pulse Ox 04/19/19 23:01 37.0 C 65 20 129/76 96 12/22/19 15:23 36.7 C 70 20 126/75 96 Laboratory Results Short CBC 04/19/19 Range/Units 05:15 WBC 5.32 (4.8-10.8) K/uL Hgb 12.2 (12.0-16.0) g/dL Hct 39.4 (37-47) % Plt Count 210 (130-400) K/uL BMP 04/19/19 05:15 Sodium 143 Potassium 3.7 Chloride 110 H Carbon Dioxide 28 BUN 9 D Creatinine 0.84 Glucose 92 Calcium 8.8 Medications Administered Current Inpatient Medications Acetaminophen (Tylenol) 650 mg PO Q4H PRN PRN Reason: pain/fever Stop: 05/17/19 23:26 Last Admin: 04/18/19 19:47 Dose: 650 mg Documented by: Aspirin (Ecotrin) 325 mg PO DAILY [facility] Stop: 05/18/19 08:59 Last Admin: 04/19/19 08:16 Dose: 325 mg Documented by: Docusate Sodium (Colace) 100 mg PO DAILY [facility] Stop: 05/18/19 08:59 Last Admin: 04/19/19 08:17 Dose: 100 mg Documented by: Enoxaparin Sodium (Lovenox) 30 mg SQ QAM [facility] Stop: 05/18/19 08:59 Last Admin: 04/19/19 08:17 Dose: 30 mg Documented by: Promethazine HCl 12.5 mg/ (Sodium Chloride) 50.5 mls @ 202 mls/hr IV Q6H PRN PRN Reason: Nausea And Vomiting Stop: 05/17/19 23:26 (1) Constipation Constipation type: unspecified constipation type Qualified Code(s): K59.00 - Constipation, unspecified
[2019-04-20] MEDS: ACETAMINOPHEN 325 MG TAB PO PRN (01:28)
[2019-04-20] MEDS: ASPIRIN 325 MG ECTAB PO SCH (07:19)
[2019-04-20] MEDS: ENOXAPARIN INJ 30 MG/0.3 ML SYR SQ SCH (07:19)
[2019-04-20] MEDS: DOCUSATE SODIUM 100 MG CAP PO SCH (07:23)
--- NOTE | 2019-04-20 12:43 | Ultrasound Report ---
US pelvic complete HISTORY: 79 years-old Female abnl CT, needs transvaginal view, thx abnormal appearance of the uterus . Follow-up exam. COMPARISON: CT abdomen and pelvis 04/17/2019 TECHNIQUE: Multiple real-time sonographic images of the deep pelvic structures were obtained transabd ominally assessing grayscale appearance and color flow FINDINGS: The patient requested that transvaginal study completed at later time secondary to discomfort. Only t he transvaginal portion of the study was completed on today's exam. Anteflexed uterus, 9.3 x 4.0 x 4.8 cm. Pathologically thickened endometrium measures up to 7 mm. Flui d distention of the endometrial cavity measures up to 2.2 cm. No discrete endometrial or myometrial m ass identified. Bilateral ovaries are not diagnostically visualized. No significant free pelvic fluid . IMPRESSION: 1. Limited exam with only the transabdominal portion of the study completed. 2. Abnormally thickened endometrium measures up to 7 mm. Additionally there is fluid distention of th e endometrial cavity most pronounced at the level of the uterine fundus. Findings are suspicious for endometrial hyperplasia versus endometrial carcinoma. As previously stated, gynecologic consultation with hysteroscopy and tissue sampling recommended. 3. Nonvisualization of the ovaries. ACT 112: Negative or not required by law. The above report was generated using voice recognition software. It may contain grammatical, syntax o r spelling errors. Electronically signed by: Kye Cao M.D. 04/20/2019 12:42 PM
[2019-04-20] MEDS ORDERED: SENNA 8.6 MG TAB PO SCH (13:45)
[2019-04-20] MEDS ORDERED: LAVAGE SOLUTION 4000ML PO STA (13:49)
--- NOTE | 2019-04-20 13:56 | Hospitalist Progress Note ---
Date of Service April 20, 2019 Assessment & Plan (1) Abdominal discomfort: -abdominal pain presumably from constipation -patient did get enemas during hospital stay with some success of some defecation but not to a degree that relieves her concerns about being able to make regular bowel movements -senna ordered -Miralax q12 hours ordered but patient initially declined as per nurse -Golytely 500 ml x 1 ordered, ordered additional 500 ml in evening -KUB ordered -will keep NPO after midnight (2) Constipation: -management as above -in addition given, constipation with associated thickened endomedtrium, will request GI consult for colonoscopy to rule out GI malignancy (3) Thickened endometrium: from endometrial hyperplasia versus possible endometrial carcinoma -Heterogeneous appearance of the fundal uterus with pathologically thickened endometrium on 04/17/19 CT scan -Abnormally thickened endometrium measures up to 7 mm. Additionally there is fluid distention of the endometrial cavity most pronounced at the level of the uterine fundus. Findings are suspicious for endometrial hyperplasia versus endometrial carcinoma -will request gynecology consult (4) Parkinson's disease dementia: -Reported per family -not on medications at home -does not follow with a family doctor (5) Tremor: -upper extremity tremor -Related to Parkinson's disease versus benign essential tremor. (6) DVT prophylaxis: -DVT prophylaxis dosing of Lovenox daily -No evidence of deep venous thrombosis on ultrasound of lower extremities Full code (7) Generalized weakness: -appears to be improving -ambulating Subjective Patient seen and examined. She is very distressed emotionally because went went to the bathroom and did not make bowel movement. She is very upset that she have not been able to move the bowels regularly. She insisted that medical doctor look at her buttock/anal area area to which medical doctor obliged with female nurse also present. External examination was unremarkable. patient denies abdominal pain. denies vomiting. no nausea. no headache. no dizziness. no chest pain. no shortness of breath. Review of Systems Review of Systems: All systems reviewed & are unremarkable except as noted in HPI & below Physical Exam Constitutional: WD/WN, vitals as above Eyes: PERRL, conjunctivae normal, anicteric sclerae EOM intact bilaterally ENMT: external ear and nose normal, oropharynx normal Neck: normal visual inspection Respiratory: normal respiratory effort, lungs clear to auscultation Cardiovascular: Rate/Rhythm: regular rate and regular rhythm Gastrointestinal (Abdomen): Inspection/Auscultation: abdomen normal to inspection and normal bowel sounds Musculoskeletal: Head/Neck/Chest: normocephalic and head atraumatic Neurologic: PERRL, EOMI, accommodation nl, no face palsy, no dysarthria CN's II-XI intact bilaterally upper extremity tremor more pronounced of left hand Psychiatric: A+Ox3, euthymic affect Results & Data Vital Signs (Past 12 Hours) Vital Signs Temp Pulse Resp BP Pulse Ox 04/20/19 07:36 36.8 C 65 18 136/83 96 (1) Constipation Constipation type: unspecified constipation type Qualified Code(s): K59.00 - Constipation, unspecified
[2019-04-20] MEDS: POLYETHYLENE (MIRALAX) 17 GM PACK PO SCH ×2 (14:05→14:13)
[2019-04-20] MEDS ORDERED: LAVAGE SOLN 240ML BOTTLE PO ONE ×2 (14:15→18:00)
--- NOTE | 2019-04-20 15:25 | XRay Report ---
[facility] CLINICAL HISTORY: Constipation. COMPARISON STUDY: CT of the abdomen and pelvis April 17, 2019. FINDINGS: Right femoral internal fixation is partially imaged. The bowel gas pattern is normal. A mil [id number] amount stool within the colon and rectum is noted. The amount of stool within the rectu m has diminished since CT of April 17, 2019. IMPRESSION: 1. No evidence for a bowel obstruction. 2. Mild to moderate amount of stool within the colon and rectum, decreased since CT of April 17 019. ACT 112: Negative or not required by law. Electronically signed by: Jaime Broussard M.D. 04/20/2019 3:24 PM
--- NOTE | 2019-04-20 15:53 | Gastrointestinal Consultation ---
Date of Consultation April 20, 2019 Assessment & Plan (1) Thickened endometrium: (2) Constipation: Pt is a 79 y/o female w hx of Parkinson's, admitted for constipation, stool impaction, suspected stercoral proctitis. Abdominal imaging showed thickened endometrium concerning for endometrial hyperplasia vs carcinoma. GI consulted for the constipation and also to eval for possible colonoscopy to r/o colorectal ca. - CL diet today, NPO after midnight - Plan for colonoscopy eval tomorrow, bowel prep ordered - INSTRUMENTATION AND CONTROLS TECHNICIAN consulted by primary team for thickening of endometrium - Pt should be on daily bowel regimen when she is discharged such as Miralax 17g daily to BID, Bisacodyl 10mg PO every other day. History of Present Illness Reason for Consultation: Constipation, eval for possible malignancy Requesting Physician: Dr. Darrell Martinez Attending Physician: Dr. Saman Burkett History of Present Illness Pt is a 79 y/o female who presented w lower abd pain, initially constipation then loose stools. CT abd/pelvis showed she has stool ball impaction in rectum area, and possibly stercoral ulcer. She had manual disimpaction, enema and also currently placed on Miralax and Golytely. She still feels constipated, KUB today showed mild to moderate stool in colon and rectum though decreased from 04/17. Pt reports hx of chronic constipation, but denies taking regular bowel regimen at home. She said only tries to take more water. She had seen rectal bleeding when she was admitted but denies on regular basis. She denies any abd pain, n/v, weight loss. It is incidentally noted on her CT scan that sge has thickened endometrium. This was followed by pelvic u/s which confirms the thickened endometrium of 7mm. Endometrium hyperplasia vs carcinoma suspected. INSTRUMENTATION AND CONTROLS TECHNICIAN consulted. We're also consulted for the constipation but also to eval for possible colonoscopy to r/o colorectal ca. Pt denies hx of colonoscopy before. Allergies Allergy/AdvReac Type Severity Reaction Status Date / Time No Known Allergies Allergy Unverified 04/17/19 17:18 Home Medications Home Medications Medication Instructions Recorded Confirmed Type aspirin 325 mg PO DAILY 04/17/19 04/17/19 History Patient History Medical History Tremor Social History Preferred Language: Albanian Communication Ability: Effective Ceramics Instructor Required: Yes Current Living Situation: Family Other Information That Helps Us Care for You: No Feels Safe at Home: Yes Smoking Status: Never smoker Hx Alcohol Use: No Hx Substance Use: No Review of Systems Review of Systems: All systems reviewed & are unremarkable except as noted in HPI & below Physical Exam Constitutional: WD/WN, vitals as above well groomed, cooperative and comfortable Eyes: PERRL, conjunctivae normal, anicteric sclerae ENMT: external ear and nose normal, oropharynx normal Respiratory: normal respiratory effort, lungs clear to auscultation Cardiovascular: RRR, no murmur, no edema Gastrointestinal (Abdomen): normal bowel sounds, soft, nontender, no hepatosplenomegaly Skin: no rashes, warm and dry no jaundice Neurologic: Motor/Sensory: + tremor Psychiatric: A+Ox3, euthymic affect Lymphatic: no lymphedema Results & Data Vital Signs (Past 12 Hours) Vital Signs Temp Pulse Resp BP Pulse Ox 04/20/19 15:46 36.8 C 71 18 125/77 91 04/20/19 07:36 36.8 C 65 18 136/83 96 (1) Constipation Constipation type: unspecified constipation type Qualified Code(s): K59.00 - Constipation, unspecified
[2019-04-20] MEDS ORDERED: LAVAGE SOLUTION 4000ML PO ONE (18:30)
[2019-04-21] MEDS: ENOXAPARIN INJ 30 MG/0.3 ML SYR SQ SCH (07:07)
[2019-04-21] MEDS: ASPIRIN 325 MG ECTAB PO SCH (07:46)
[2019-04-21] MEDS ORDERED: fentaNYL citrate 100 MCG/2 ML VIAL ONE (09:54)
[2019-04-21] MEDS ORDERED: LIDOCAINE HCL 2% 2 ML VIAL/AMP(20MG/ML) INFIL ONE (09:59)
[2019-04-21] MEDS ORDERED: PROPOFOL IV EMULSION 10 MG/ML 20 ML VIAL IV ONE (09:59)
--- NOTE | 2019-04-21 10:00 | History & Physical Bridge Note ---
Date of Service April 21, 2019 History & Physical Bridge Note I have examined the patient, reviewed the History & Physical and in the interval since the performance of the History & Physical I have noted the following changes of clinical significance: no changes noted
--- NOTE | 2019-04-21 10:00 | Progress Note ---
Date of Service April 21, 2019 Subjective HOME CARE ATTENDANT Consult Full consult is dictated Sono and Ct showed thickened endometrium Pt;s grand daughter is the Power of district attorney. Has agreed for pt to undergo 1.Examination under anesthesia 2. D&C with hysteroscopy Will proceed as above Results & Data Vital Signs (Past 12 Hours) Vital Signs Temp Pulse Resp BP Pulse Ox 04/21/19 07:38 36.7 C 75 18 127/68 97
--- NOTE | 2019-04-21 10:03 | Hospitalist Progress Note ---
Date of Service April 21, 2019 Assessment & Plan (1) Abdominal discomfort: -abdominal pain presumably from constipation -no further abdominal pain recently during hospital stay -04/20/19: patient did get enemas during hospital stay with some success of some defecation but not to a degree that relieves her concerns about being able to make regular bowel movements. bowel regimen was increased -As per patient's nurse and the patient, patient was able to make bowel movement on 04/21/19 with the Golytely. (2) Constipation: -management as above -given constipation with associated thickened endometrium, hospitalist requested GI consult for colonoscopy to rule out GI malignancy -04/21/19: Gastroenterology and OBGYN services are coordinating colonoscopy and endometrial biopsy (3) Thickened endometrium: from endometrial hyperplasia versus possible endometrial carcinoma -Heterogeneous appearance of the fundal uterus with pathologically thickened endometrium on 04/17/19 CT scan -Abnormally thickened endometrium measures up to 7 mm. Additionally there is fluid distention of the endometrial cavity most pronounced at the level of the uterine fundus. Findings are suspicious for endometrial hyperplasia versus endometrial carcinoma -04/21/19: Gastroenterology and OBGYN services are coordinating colonoscopy and endometrial biopsy (4) Parkinson's disease dementia: -Reported per family -not on medications at home -does not follow with a family doctor -Mrs. Membreno's granddaughter, Blanca (primary contact) [phone] helps patient makes medical decisions (5) Tremor: -upper extremity tremor -Related to Parkinson's disease versus benign essential tremor. (6) Generalized weakness: -appears to be improving -ambulating (7) DVT prophylaxis: -DVT prophylaxis dosing of Lovenox daily -No evidence of deep venous thrombosis on ultrasound of lower extremities Full code Subjective As per patient's nurse and the patient, patient was able to make bowel movement on 04/21/19 with the Golytely. No acute distress this AM. Patient not anxious about bowel movements today. breathing on room air. no shortness of breath. Gastroenterology and OBGYN services are coordinating colonoscopy and endometrial biopsy Review of Systems Review of Systems: All systems reviewed & are unremarkable except as noted in HPI & below Physical Exam Constitutional: WD/WN, vitals as above Eyes: PERRL, conjunctivae normal, anicteric sclerae EOM intact bilaterally ENMT: external ear and nose normal, oropharynx normal Neck: normal visual inspection Respiratory: normal respiratory effort, lungs clear to auscultation Cardiovascular: Rate/Rhythm: regular rate and regular rhythm Gastrointestinal (Abdomen): Inspection/Auscultation: abdomen normal to inspection and normal bowel sounds Musculoskeletal: Head/Neck/Chest: normocephalic and head atraumatic Neurologic: PERRL, EOMI, accommodation nl, no face palsy, no dysarthria CN's II-XI intact bilaterally Psychiatric: A+Ox3, euthymic affect Results & Data Vital Signs (Past 12 Hours) Vital Signs Temp Pulse Resp BP Pulse Ox 04/21/19 07:38 36.7 C 75 18 127/68 97 (1) Constipation Constipation type: unspecified constipation type Qualified Code(s): K59.00 - Constipation, unspecified
--- NOTE | 2019-04-21 10:37 | Consultation Report ---
DATE OF CONSULTATION: 04/19/2019 Consult is placed by Dr. Martinez. HISTORY OF PRESENT ILLNESS: This is a 79-year-old with history of dementia who was in her usual state of health. On 04/17, she presented to the Emergency Room with constipation and abdominal pain. The patient has been admitted in the hospital since. She has been worked up for the abdominal pain. Workup included CT scan which showed an incidental ASSISTANT GM OF CONTENT & DELIVERY finding of thickened endometrium. Ultrasound was ordered and ultrasound showed that the endometrium is small around 5 mm. The patient is a poor historian. She denies any history of postmenopausal bleeding or any ASSISTANT GM OF CONTENT & DELIVERY history. She is scheduled to undergo a colonoscopy today. Because of her endometrial finding, we have been able to arrange D&C, hysteroscopy with a colonoscopy to be done together at the same operating time. The patient's power of claim attorney is her granddaughter who has verbally consented for D and C hysteroscopy. I have spent time on the phone with her discussing risks and benefits including infection, bleeding, and damage to internal and adjacent organs. She has agreed that her grandmother can proceed with surgery. PAST MEDICAL HISTORY: History of Parkinson's. PAST SURGICAL HISTORY: History of hip surgery. SOCIAL HISTORY: Denies tobacco, drug or alcohol use. FAMILY HISTORY: Significant for history of uterine cancer. PHYSICAL EXAMINATION: GENERAL: Well-developed, well-nourished white female in no acute distress. HEART: S1, S2, regular rhythm and rate. LUNGS: Clear to auscultation bilaterally. ABDOMEN: Nontender, nondistended. VITAL SIGNS: Blood pressure is 127/68, pulse 75, respirations 18, temperature 36.7. ASSESSMENT AND PLAN: A 79-year-old who has been admitted for constipation, history of Parkinson's disease with incidental finding of a thickened endometrium. The patient is undergoing colonoscopy. We have therefore arranged for D and C hysteroscopy to be done at the same time. The patient's granddaughter is the power of claim attorney and has given verbal consent to proceed with surgery. Surgery will be examination under anesthesia, dilation and curettage as well as hysteroscopy.
[2019-04-21] MEDS ORDERED: miSOPROStoL 200 MCG TAB ONE (10:39)
[2019-04-21] MEDS ORDERED: HYDROmorphone INJ 2 MG/ML SYR/VIAL IV PRN (11:23)
[2019-04-21] MEDS ORDERED: fentaNYL citrate 100 MCG/2 ML VIAL IV PRN (11:23)
[2019-04-21] MEDS ORDERED: ONDANSETRON INJ 2 MG/ML 2 ML VIAL IV PRN (11:23)
[2019-04-21] MEDS ORDERED: ePHEDrine sulfate 50 MG/ML AMP IV PRN (11:23)
[2019-04-21] MEDS ORDERED: ATROPINE SULFATE 0.1 MG/ML 10ML SYR IV PRN (11:23)
--- NOTE | 2019-04-21 11:23 | Anesthesiology Consultation ---
Date of Service April 21, 2019 Assessment & Plan ASA ASA3 Proposed Anesthesia Anesthesia Type: General Risk / Benefits Reviewed With: PT / POA / Parent / Guardian, Accepts Plan and Informed Consent Obtained History Surgery Operation Date: 04/21/19 07:00 Proposed Procedures p Colonoscopy - Mee Bonner MD s Dilation and Curettage - Andrea Gonzalez MD s Hysteroscopy - Andrea Gonzalez MD Height/Weight Height: 5 ft 2 in Weight: 73.8 kg Allergies Allergy/AdvReac Type Severity Reaction Status Date / Time No Known Allergies Allergy Unverified 04/17/19 17:18 Medications Home Medications Medication Instructions Recorded Confirmed Last Taken aspirin 325 mg PO DAILY 04/17/19 04/17/19 Unknown Active Medications Generic Name Dose Route Start Last Admin Trade Name Freq PRN Reason Stop Dose Admin Aspirin 325 mg 04/18/19 09:00 04/21/19 07:46 Ecotrin PO 05/18/19 08:59 325 mg DAILY JUDI Administration Enoxaparin Sodium 30 mg 04/18/19 09:00 04/21/19 07:07 Lovenox SQ 05/18/19 08:59 Not Given QAM JUDI NPO Date Last Intake of Fluids: 04/21/19 Time Last Intake of Fluids: 07:56 Last Intake of Fluids Comment: sips with AM medications per order Date Last Intake of Solids: 04/20/19 Time Last Intake of Solids: 21:00 Past Medical History Medical History Tremor Exercise / Class Metabolic Activity II 4-5 Yardwork/Stairs/Walk up hill Past Anesthesia History No Hx of Anesthesia Complications and No Family Hx of Anesthesia Complications History of PONV No Hx of PONV and No Hx of Motion Sickness Social History Smoking Status: Never smoker Hx Alcohol Use: No Hx Substance Use: No Review of Systems nable to obtain 2/2 dementia Physical Exam Vital Signs Last Vital Signs Temp 36.9 C 04/21/19 10:31 Pulse 66 04/21/19 10:31 Resp 20 04/21/19 10:31 BP 131/54 L 04/21/19 10:31 Pulse Ox 98 04/21/19 10:31 ENMT Mouth: + edentulous; no TMJ abnormality and no dentition abnormality Thyromental Distance: > or= 3.5 Finger Breadths Mallampati Class: II Neck neck extension not limited Respiratory normal respiratory effort; no respiratory distress Auscultation: lungs clear to auscultation bilaterally Cardiovascular Rate/Rhythm: regular rate and regular rhythm Neurologic moves all extremities Psychiatric Orientation: alert and oriented x 3 Testing Laboratory Results 04/19/19 05:15 04/19/19 05:15 Urine Color Dark Yellow 04/17/19 18:20 Urine Appearance Clear (Clear) 04/17/19 18:20 Urine pH 5.0 (4.5-7.5) 04/17/19 18:20 Ur Specific [place] 1.023 (1.000-1.030) 04/17/19 18:20 Urine Protein Negative (Negative) 04/17/19 18:20 Urine Glucose (UA) Negative (Negative) 04/17/19 18:20 Urine Ketones 1+ (Negative) H 04/17/19 18:20 Urine Nitrite Negative (Negative) 04/17/19 18:20 Ur Leukocyte Esterase Negative (Negative) 04/17/19 18:20 04/17/19 18:20 Escherichia coli Shiga Toxins Test - Final Stool Stool Culture - Final No Salmonella isolated, No Shigella isolated, No Campylobacter jejuni isolated. 04/17/19 18:20 WBC Smear - Final Stool
[2019-04-21] MEDS ORDERED: METHYLERGONOVINE MALEATE 0.2 MG/ML AMP ONE (11:37)
--- NOTE | 2019-04-21 12:19 | Operative Report ---
Post Operative Report Pre & Post Diagnosis Operation Date: 04/21/19 07:00 Pre-Op Diagnosis: constipation; endometrial thickening on pelvis ultrasound Post-Op Diagnosis: hemorrhoids and polpys I identified the patient and participated in the time-out.: Yes Procedure Operation Date: 04/21/19 07:00 Actual Procedures p Colonoscopy(Not Applicable) - Mee Bonner MD s Dilation and Curettage(Not Applicable) - Andrea Gonzalez MD s Hysteroscopy(Not Applicable) - Andrea Gonzalez MD Surgeon Mee Bonner MD Sheet Metal Worker Apprentice None Estimated Blood Loss 0 Findings See Below (Small colon polyps removed, hemorrhoids) Specimens Colon polyps Description of Procedure Colonoscopy I attest to the content of the Intraoperative Record and any orders documented therein. Any exceptions are noted below.
--- NOTE | 2019-04-21 12:20 | GI REPORT ---
Patient Name: Odalis Membreno Procedure Date: 04/21/2019 10:24 AM Date of : 1940 Admit Type: Inpatient Age: 79 Gender: Female Attending MD: Mee Bonenr MD Procedure: Colonoscopy Providers: Mee Bonner MD Referring MD: Darrell Martinez M.d. Indications: Abnormal CT of the GI tract, Constipation Medicines: General Anesthesia Complications: No immediate complications. Estimated Blood Loss: Estimated blood loss: none. Procedure: Pre-Anesthesia Assessment: - Prior to the procedure, a History and Physical was performed, and patient medications, allergies and sensitivities were reviewed. The patient's tolerance of previous anesthesia was reviewed. - The risks and benefits of the procedure and the sedation options and risks were discussed with the patient. All questions were answered and informed consent was obtained. - Patient identification and proposed procedure were verified prior to the procedure by the physician and the nurse. The procedure was verified in the procedure room. - Pre-procedure physical examination revealed no contraindications to sedation. After I obtained informed consent, the scope was passed under direct vision. Throughout the procedure, the patient's blood pressure, pulse, and oxygen saturations were monitored continuously. The Scope was introduced through the anus and advanced to the terminal ileum. The colonoscopy was performed without difficulty. The patient tolerated the procedure well. The quality of the bowel preparation was good. The terminal ileum, ileocecal valve, appendiceal orifice, and rectum were photographed. Findings: The perianal and digital rectal examinations were normal. The terminal ileum appeared normal. Two sessile polyps were found in the ascending colon. The polyps were 6 mm in size. These polyps were removed with a cold snare. Resection and retrieval were complete. Verification of patient identification for the specimen was done by the physician and nurse using the patient's name and date. A 6 mm polyp was found in the rectum. The polyp was sessile. The polyp was removed with a cold snare. Resection and retrieval were complete. Non-bleeding internal hemorrhoids were found during retroflexion. The hemorrhoids were small. Impression: - The examined portion of the ileum was normal. - Two 6 mm polyps in the ascending colon, removed with a cold snare. Resected and retrieved. - One 6 mm polyp in the rectum, removed with a cold snare. Resected and retrieved. - Non-bleeding internal hemorrhoids. Recommendation: - Return patient to [facility] for [facility] care. - Await pathology results. - Repeat colonoscopy in 5 years for surveillance. - Return to referring physician. Mee Bonner MD 04/21/2019 12:20:04 PM This report has been signed electronically. Note Initiated On: 04/21/2019 10:24 AM Number of Addenda: 0 I attest to the content of the Intraoperative Record and orders documented therein, exceptions below {[id number]}
--- NOTE | 2019-04-21 12:28 | Progress Note ---
Date of Service April 21, 2019 Subjective Colonoscopy unremarkable for malignancy. Continue Laxatives. Recall GI if needed. Results & Data Vital Signs (Past 12 Hours) Vital Signs Temp Pulse Resp BP Pulse Ox 04/21/19 10:31 36.9 C 66 20 131/54 L 98 04/21/19 07:38 36.7 C 75 18 127/68 97
[2019-04-21] MEDS ORDERED: ONDANSETRON INJ 2 MG/ML 2 ML VIAL ONE (12:33)
[2019-04-21] MEDS ORDERED: ePHEDrine sulfate 50 MG/ML SYR ONE (12:33)
--- NOTE | 2019-04-21 13:07 | Post Operative Brief Note ---
Immediate Post Op Note v1 Date of Surgery April 21, 2019 Pre & Post Diagnosis Operation Date: 04/21/19 07:00 Pre-Op Diagnosis: constipation; endometrial thickening on pelvis ultrasound Post-Op Diagnosis: hemorrhoids and polpys; endometrial thickening on pelvis ultrasound I identified the patient and participated in the time-out.: Yes Procedure Operation Date: 04/21/19 07:00 Actual Procedures p Colonoscopy(Not Applicable) - Mee Bonner MD s Exam under Anesthesia, Dilation and Curettage(Not Applicable) - Andrea Gonzalez MD s Hysteroscopy(Not Applicable) - Andrea Gonzalez MD Surgeon Andrea Gonzalez MD Splicing Machine Operator None Estimated Blood Loss 10 (colonoscopy:0mL) Findings Consistent with Post-Op Diagnosis
[2019-04-21] MEDS ORDERED: OXYCODONE/ACETAMINOPHEN 5mg/325mg TAB PO PRN (13:15)
[2019-04-21] MEDS ORDERED: SODIUM CHLORIDE 0.9% 1000ML 1,000 ML IV SCH (13:15)
[2019-04-21] MEDS ORDERED: METOCLOPRAMIDE HCL INJ 5 MG/ML 2 ML VIAL IV PRN (13:15)
[2019-04-21] MEDS ORDERED: IBUPROFEN 600 MG TAB PO PRN (13:15)
--- NOTE | 2019-04-21 13:22 | Operative Report ---
DATE OF OPERATION: 04/21/2019 INDICATION FOR SURGERY: This is a 79-year-old with thickened endometrium seen on sonogram. POSTOPERATIVE DIAGNOSIS: This is a 79-year-old with thickened endometrium seen on sonogram. PROCEDURES: Examination under anesthesia, Dilation and curettage, hysteroscopy, endometrial resection with MyoSure, culture of urine specimen and culture of endometrial fluid. SURGEON: Andrea Gonzalez MD REGIONAL EXTENSION SERVICE SPECIALIST: None. ESTIMATED BLOOD LOSS: 10 mL. INTRAVENOUS FLUIDS: 500 mL. URINE OUTPUT: 400 mL urine. Urine appears to be blood tinged. HYSTEROSCOPY DEFICIT: 825. ESTIMATED BLOOD LOSS: 10 mL. FINDINGS ON UTERUS: The uterus appears to be proliferative. There is pyometrium seen. There were some endometrial polyps in the uterus which are removed, appears to be some white appearing areas in the uterus. PATHOLOGY: 1. Culture of endometrial pus. 2. Urine specimen. 3. Endometrial curettings using MyoSure. 4. Sharp curette. COMPLICATIONS: None. DRAINS: None. ANESTHESIA: General. PROCEDURE IN DETAIL: The patient was taken to the operating room where she was prepped and draped in normal sterile fashion in dorsal lithotomy position. Bladder was catheterized and urine with red blood tinge is identified and sent to lab for urine culture. A weighted speculum was placed in the vagina. Messina retractor used to retract the anterior part vagina. Single tooth tenaculum used to grab the cervix. Cervix is dilated in series. A hysteroscope is placed into the uterus and findings of the uterine cavity is as dictated above. MyoSure device is passed through the outflow tract and endometrial polyps and curettage is performed with the MyoSure. That specimen is also sent to pathology. The hysteroscope was removed. Size #2 sharp curette is introduced into the uterine cavity. Curettage performed in all 4 quadrants until a gritty texture is obtained. That specimen is also sent to pathology for pathological analysis. All instruments were removed from the uterus and vagina and accounted for x2 including sponges, needles and retractors. There was good hemostasis. The patient was returned to recovery in stable condition. I attest to the content of the Intraoperative Record and any orders documented therein. Any exception s are noted below.
--- NOTE | 2019-04-21 13:23 | Anesthesiology Progress Note ---
Date of Service April 21, 2019 Anesthesia Post Procedure Vital Signs Vital Signs: Temp Pulse Pulse Resp BP BP Pulse Ox 04/21/19 13:15 73 18 117/52 L 92 04/21/19 13:05 71 17 123/57 L 99 04/21/19 12:55 72 16 130/63 99 04/21/19 12:48 36.3 C L 78 22 141/73 H 98 04/21/19 10:31 36.9 C 66 20 131/54 L 98 04/21/19 07:38 36.7 C 75 18 127/68 97 04/20/19 15:46 36.8 C 71 18 125/77 91 Pain Intensity Head: Pain Intensity: 5 Left Shoulder: Pain Intensity: 1 Transfer of Care Handoff Completed per policy Notes Mental Status: alert / awake / arousable and participated in evaluation Patient Amnestic to Procedure: Yes Nausea / Vomiting: adequately controlled Pain: adequately controlled Airway Patency, RR, SpO2: stable & adequate BP & HR: stable & adequate Hydration State: stable & adequate Anesthetic Complications: no major complications apparent and Pt Satisfied with anesthetic care
[2019-04-21] MEDS: ACETAMINOPHEN 325 MG TAB PO PRN (21:51)
[2019-04-22 06:10] LABS: Basophils # (auto) 0.04 K/uL (0-0.2); Basophils % (auto) 0.6 %; Eosinophils # (auto) 0.36 K/uL (0-0.5); Eosinophils % (auto) 5.5 %; Hematocrit (blood only) 39.6 % (37-47); Hemoglobin 12.5 g/dL (12.0-16.0); Immature Granulocytes # (auto) 0.01 K/uL (0.00-0.02); Immature Granulocytes % (auto) 0.2 %; Lymphocytes # (auto) 1.82 K/uL (1.2-3.4); Lymphocytes % (auto) 27.6 %; Mean Corpuscular Hemoglobin 27.2 pg (25-34); Mean Corpuscular Hgb Conc 31.6 g/dL (32-36); Mean Corpuscular Volume 86.3 fL (80-100); Mean Platelet Volume 10.9 fL (7.4-10.4); Monocytes # (auto) 0.52 K/uL (0.11-0.59); Monocytes % (auto) 7.9 %; Neutrophils # (auto) 3.84 K/uL (1.4-6.5); Neutrophils % (auto) 58.2 %; Platelet Count 201 K/uL (130-400); RDW Coefficient of Variation 14.5 % (11.5-14.5); RDW Standard Deviation 45.3 fL (36.4-46.3); Red Blood Count 4.59 M/uL (4.2-5.4); White Blood Count 6.59 K/uL (4.8-10.8)
[2019-04-22] MEDS: ACETAMINOPHEN 325 MG TAB PO PRN ×3 (09:24→22:21)
--- NOTE | 2019-04-22 10:47 | Hospitalist Progress Note ---
Date of Service April 22, 2019 Assessment & Plan (1) Abdominal discomfort: -abdominal pain presumably from constipation -no further abdominal pain recently during hospital stay -04/20/19: patient did get enemas during hospital stay with some success of some defecation but not to a degree that relieves her concerns about being able to make regular bowel movements. bowel regimen was increased -As per patient's nurse and the patient, patient was able to make bowel movement on 04/21/19 with the Golytely -on 04/21/19: patient is s/p colonoscopy and resection of 2 sessile polyps in the ascending colon and 1 sessile polyp in rectum; no gastrointestinal malignancy by direct visualization with colonoscopy; follow up pathology report (2) Constipation: -management as above -on 04/21/19 patient is s/p colonoscopy and resection of 2 sessile polyps in the ascending colon and 1 sessile polyp in rectum; no gastrointestinal malignancy by direct visualization with colonoscopy; follow up pathology report (3) Thickened endometrium: from endometrial hyperplasia versus possible endometrial carcinoma -Heterogeneous appearance of the fundal uterus with pathologically thickened endometrium on 04/17/19 CT scan -Abnormally thickened endometrium measures up to 7 mm. Additionally there is fluid distention of the endometrial cavity most pronounced at the level of the uterine fundus. Findings are suspicious for endometrial hyperplasia versus endometrial carcinoma -on 04/21/19 s/p endometrial biopsy. follow pathology. Culture of endometrial pus pending (Gram Stain Result: No Epithelial Cells; Many WBCs Seen; Rare Gram Positive Bacilli) possible urinary tract infection -04/21/19 urine culture with Escherichia coli and high [place] Count >100,000 CFU/ml -urine culture Sensitivities pending -start ceftriaxone 1 gram daily, patient denies dsyuria symptoms (4) Parkinson's disease dementia: -Reported per family -not on medications at home -does not follow with a family doctor -Mrs. Membreno's granddaughter, Blanca (primary contact) [phone] helps patient makes medical decisions (5) Tremor: -upper extremity tremor -Related to Parkinson's disease versus benign essential tremor. (6) Generalized weakness: -appears to be improving -ambulating with walker (7) DVT prophylaxis: -DVT prophylaxis of SCDs or TEDs -No evidence of deep venous thrombosis on ultrasound of lower extremities on 04/17/19 Full code Subjective Patient denies dysuria symptoms. No bowel movement since the 04/22/19 procedure. patient reports she is feeling comfortable. No distress. no abdomen pain. no vomiting. no nausea. able to eat the meals. no chest pain. breathing on room air. no shortness of breath. awaiting for family member (grand daughter) to arrive to hospital to discuss in person of hospital course to date with the patient Review of Systems Review of Systems: All systems reviewed & are unremarkable except as noted in HPI & below Physical Exam Constitutional: WD/WN, vitals as above Eyes: PERRL, conjunctivae normal, anicteric sclerae EOM intact bilaterally ENMT: external ear and nose normal, oropharynx normal Neck: normal visual inspection Respiratory: normal respiratory effort, lungs clear to auscultation Cardiovascular: Rate/Rhythm: regular rate and regular rhythm Gastrointestinal (Abdomen): Inspection/Auscultation: abdomen normal to inspection and normal bowel sounds Musculoskeletal: Head/Neck/Chest: normocephalic and head atraumatic Neurologic: PERRL, EOMI, accommodation nl, no face palsy, no dysarthria CN's II-XI intact bilaterally Psychiatric: A+Ox3, euthymic affect Results & Data Vital Signs (Past 12 Hours) Vital Signs Temp Pulse Resp BP Pulse Ox 04/22/19 07:07 36.5 C 73 16 121/73 95 04/21/19 23:36 36.7 C 65 20 117/69 95 (1) Constipation Constipation type: unspecified constipation type Qualified Code(s): K59.00 - Constipation, unspecified
[2019-04-22] MEDS ORDERED: cefTRIAXone SODIUM 1,000 MG in DEXTROSE 5% 50 ML IV ONE (11:30)
[2019-04-23] MEDS ORDERED: cefTRIAXone SODIUM 1,000 MG in DEXTROSE 5% 50 ML IV SCH (09:00)
[2019-04-23] MEDS ORDERED: POLYETHYLENE (MIRALAX) 17 GM PACK PO PRN (10:55)
--- NOTE | 2019-04-23 11:24 | Hospitalist Progress Note ---
Date of Service April 23, 2019 Assessment & Plan (1) Abdominal discomfort: -abdominal pain presumably from constipation -no further abdominal pain recently during hospital stay -04/20/19: patient did get enemas during hospital stay with some success of some defecation but not to a degree that relieves her concerns about being able to make regular bowel movements. bowel regimen was increased -As per patient's nurse and the patient, patient was able to make bowel movement on 04/21/19 with the Golytely -on 04/21/19: patient is s/p colonoscopy and resection of 2 sessile polyps in the ascending colon and 1 sessile polyp in rectum; no gastrointestinal malignancy by direct visualization with colonoscopy -04/23/19: hospitalist discussed with pathologist Dr. Lewis - his full report pending - but Dr. Lewis does not find evidence of malignancy in GI specimens or endometrium specimen. 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 hospitalist discussed with OBGYN Dr. Gonzalez and he informed hospitalist that there is no surgical intervention needed for this benign growth. 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 Additionally there is fluid distention of the endometrial cavity most pronounced at the level of the uterine fundus. Findings are suspicious for endometrial hyperplasia versus endometrial carcinoma -on 04/21/19 s/p endometrial biopsy. follow pathology. Culture of endometrial pus pending (Gram Stain Result: No Epithelial Cells; Many WBCs Seen; Rare Gram Positive Bacilli) -04/23/19: hospitalist discussed with pathologist Dr. Lewis - his full report pending - but Dr. Lewis does not find evidence of malignancy in GI specimens or endometrium specimen. 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 hospitalist discussed with OBGYN Dr. Gonzalez and he informed hospitalist that there is no surgical intervention needed for this benign growth. possible urinary tract infection -04/21/19 urine culture with Escherichia coli and high [place] Count >100,000 CFU/ml -start ceftriaxone 1 gram daily on 04/22/19, ceftriaxone given on 04/23/19 -urine culture of pansensitive E.coli Sensitivities, likely can be given oral antibiotics unless continues to stay as inpatient in which then ceftriaxone can be continued (4) Parkinson's disease dementia: -Reported per family -not on medications at home -does not follow with a family doctor regularly -scheduled upcoming family doctor appointments 05/01/2019 1:00 PM Provider Peri Ling MD Department Internal Medicine [facility] 05/20/2019 10:20 AM Provider Peri Ling MD Department Internal Medicine [facility] -Mrs. Membreno's granddaughterBlanca (primary contact) [phone] helps patient makes medical decisions -family members are undecided whether patient go to physical rehabilitation center after hospital stay versus home with home health services. catalytic case operator in discussions (5) Tremor: -upper extremity tremor -Related to Parkinson's disease versus benign essential tremor. (6) Generalized weakness: -appears to be improving -ambulates from hospital bed to bathroom (7) DVT prophylaxis: -DVT prophylaxis of SCDs or TEDs -No evidence of deep venous thrombosis on ultrasound of lower extremities on 04/17/19 Full code Subjective No bowel movement today. Patient denies abdominal pain. no nausea. no vomiting. no dizziness. no headache. patient and family member notified of initial pathology results Review of Systems Review of Systems: All systems reviewed & are unremarkable except as noted in HPI & below Physical Exam Constitutional: WD/WN, vitals as above Eyes: PERRL, conjunctivae normal, anicteric sclerae EOM intact bilaterally ENMT: external ear and nose normal, oropharynx normal Neck: normal visual inspection Respiratory: normal respiratory effort, lungs clear to auscultation Cardiovascular: Rate/Rhythm: regular rate and regular rhythm Gastrointestinal (Abdomen): Inspection/Auscultation: abdomen normal to inspection and normal bowel sounds Musculoskeletal: Head/Neck/Chest: normocephalic and head atraumatic Neurologic: PERRL, EOMI, accommodation nl, no face palsy, no dysarthria CN's II-XI intact bilaterally Psychiatric: A+Ox3, euthymic affect Results & Data Vital Signs (Past 12 Hours) Vital Signs Temp Pulse Resp BP Pulse Ox 04/23/19 07:01 36.5 C 68 19 139/80 94 (1) Constipation Constipation type: unspecified constipation type Qualified Code(s): K59.00 - Constipation, unspecified
[2019-04-23] MEDS ORDERED: DOCUSATE SODIUM 100 MG CAP PO SCH (11:30)
[2019-04-23] MEDS ORDERED: SENNA 8.6 MG TAB PO SCH (11:30)
--- NOTE | 2019-04-23 13:31 | Discharge Summary ---
Date of Service April 23, 2019 Admission HPI Per Admitting Provider History obtained from patient, family, and records. Patient is a fair historian. Medical history significant for Parkinson's dementia as per family. Few days history of achy lower abdominal discomfort with nausea, poor appetite. Patient initially constipated followed by loose stools. Poor appetite. No chest pain, no S OB. Patient brought to the ER by family. 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, lives with son Admission Exam Per Admitting Provider GENERAL: Comfortable, oriented to month, no respiratory distress SKIN: Normal color, warm HEENT: Bespectacled, [place] palpebral conjunctivae, no ptosis, dry buccal mucosa NECK : Supple, short neck, no tenderness CHEST : CTA, no tenderness HEART : RRR, no obvious murmurs ABDOMEN: Some distention, nontender EXTREMITIES : Bilateral LE swelling R> L, no LE tenderness, no other conspicuous deformities noted NEUROLOGIC : Coherent, no facial asymmetry, rest tremors, no other gross focality Principal Diagnosis Generalized Weakness, (initial suspicion of endometrial hyperplasia or endometrial carcinoma) but 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, s/p Dilation and curettage, Abdominal discomfort, Constipation, s/p colonoscopy and resection of 2 sessile polyps in the ascending colon and 1 sessile polyp in rectum, possible urinary tract infection Discharge Exam Constitutional WD/WN, vitals as above Eyes PERRL, conjunctivae normal, anicteric sclerae EOM intact bilaterally ENMT external ear and nose normal, oropharynx normal Neck normal visual inspection Respiratory normal respiratory effort, lungs clear to auscultation Cardiovascular Rate/Rhythm: regular rate and regular rhythm Gastrointestinal (Abdomen) Inspection/Auscultation: abdomen normal to inspection and normal bowel sounds Musculoskeletal Head/Neck/Chest: normocephalic and head atraumatic Neurologic PERRL, EOMI, accommodation nl, no face palsy, no dysarthria CN's II-XI intact bilaterally Psychiatric A+Ox3, euthymic affect Discharge Data Allergies Allergy/AdvReac Type Severity Reaction Status Date / Time No Known Allergies Allergy Unverified 04/17/19 17:18 Consultations 04/17/19 20:39 ED Decision to Admit Stat 04/17/19 23:27 Consult Case Management - Discharge Planning Routine Procedures Performed Operation Date: 04/21/19 07:00 Actual Procedures p Colonoscopy(Not Applicable) - Mee Bonner MD s Exam under Anesthesia, Dilation and Curettage(Not Applicable) - Andrea Gonzalez MD s Hysteroscopy(Not Applicable) - Andrea Gonzalez MD Ordered Studies 04/17/19 16:24 CT abd pelvis IV con only Stat CT head/brain wo con Stat 04/17/19 22:04 US venous doppler LE BI Urgent 04/20/19 15:47 US pelvic complete Routine Hospital Course (1) Abdominal discomfort: -abdominal pain presumably from constipation -no further abdominal pain recently during hospital stay -04/20/19: patient did get enemas during hospital stay with some success of some defecation but not to a degree that relieves her concerns about being able to make regular bowel movements. bowel regimen was increased -As per patient's nurse and the patient, patient was able to make bowel movement on 04/21/19 with the Golytely -on 04/21/19: patient is s/p colonoscopy and resection of 2 sessile polyps in the ascending colon and 1 sessile polyp in rectum; no gastrointestinal malignancy by direct visualization with colonoscopy -04/23/19: hospitalist discussed with pathologist Dr. Lewis - his full report pending - but Dr. Lewis does not find evidence of malignancy in GI specimens or endometrium specimen. 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 hospitalist discussed with OBGYN Dr. Gonzalez and he informed hospitalist that there is no surgical intervention needed for this benign growth. 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 Additionally there is fluid distention of the endometrial cavity most pronounced at the level of the uterine fundus. Findings are suspicious for endometrial hyperplasia versus endometrial carcinoma -on 04/21/19 s/p endometrial biopsy. follow pathology. Culture of endometrial pus pending (Gram Stain Result: No Epithelial Cells; Many WBCs Seen; Rare Gram Positive Bacilli) -04/23/19: hospitalist discussed with pathologist Dr. Lewis - his full report pending - but Dr. Lewis does not find evidence of malignancy in GI specimens or endometrium specimen. 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 hospitalist discussed with OBGYN Dr. Gonzalez and he informed hospitalist that there is no surgical intervention needed for this benign growth. possible urinary tract infection -04/21/19 urine culture with Escherichia coli and high [place] Count >100,000 CFU/ml -urine culture of pansensitive E.coli. patient treated with ceftriaxone on 1 gram daily on 04/22/19, 04/23/19. Patient should complete antibiotic course with oral nitrofurantoin macrocrystal 100 mg twice a day starting on 04/24/19 for 3 days. (4) Parkinson's disease dementia: -Reported per family -not on medications at home -does not follow with a family doctor regularly -upper extremity tremor may be related to Parkinson's disease versus benign essential tremor; management on outpatient basis -scheduled upcoming family doctor appointments 05/01/2019 1:00 PM Provider Peri Ling MD Department Internal Medicine [facility] 05/20/2019 10:20 AM Provider Peri Ling MD Department Internal Medicine [facility] -Mrs. Membreno's granddaughterBlanca (primary contact) [phone] helps patient makes medical decisions (5) Tremor: -upper extremity tremor may be related to Parkinson's disease versus benign essential tremor; management on outpatient basis (6) Generalized weakness: -appears to be improving -ambulates from hospital bed to bathroom -Discharge to [facility] for further physical rehabilitation (7) DVT prophylaxis: -DVT prophylaxis of SCDs or TEDs -No evidence of deep venous thrombosis on ultrasound of lower extremities on 04/17/19 Full code Total Time Total Time Spent Total Time Spent (In Minutes): 40 minutes Total Time Includes: Examination of the Patient, Discharge Planning, Medication Reconciliation and Communication With Other Providers Discharge Plan Discharge Items Patient Disposition: Transfer Inpatient Rehab Fac Reason For Visit: ABDOMINAL PAIN Discharge Diagnosis: Generalized Weakness, (initial suspicion of endometrial hyperplasia or endometrial carcinoma) but 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 Lewis - his full report pending - but Dr. Lewis does not find evidence of malignancy in GI specimens or endometrium specimen. 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 hospitalist discussed with OBGYN Dr. Gonzalez and he informed hospitalist that there is no surgical intervention needed for this benign growth. urine culture of pansensitive E.coli. patient treated with ceftriaxone on 1 gram daily on 04/22/19, 04/23/19. Patient should complete antibiotic course with oral nitrofurantoin macrocrystal 100 mg twice a day starting on 04/24/19 for 3 days. discharge prescriptions made for senna 8.6 mg daily and docusate (colace) 100 mg twice a day, and Miralax (polyethylene glycol) 17 gram once daily as needed for constipation Discharge to [facility] upper extremity tremor may be related to Parkinson's disease versus benign essential tremor; management on outpatient basis 05/01/2019 1:00 PM Provider Peri Ling MD Department Internal Medicine [facility] 05/20/2019 10:20 AM Provider Peri Ling MD Department Internal Medicine [facility] Pending Studies at Discharge: Yes (full pathology report pending from 04/21/19 specimens) Stand-Alone Forms: My [facility] Skilled Items Patient informed of condition?: Yes DNR: Yes Discharge Level of Care: Acute rehab Communicable Disease: No Discharge Prognosis: Stable Lines: None Urinary Catheter: No Medications and DC Order Prescriptions: New polyethylene glycol 3350 [Miralax] 17 gram Powder In Packet 17 g PO DAILY PRN (Reason: constipation) 30 Days Qty: 30 RF: 0 docusate sodium 100 mg Capsule 100 mg PO BID 30 Days Qty: 60 RF: 0 sennosides [Senokot] 8.6 mg Tablet 8.6 mg PO QAM 30 Days Qty: 30 RF: 0 nitrofurantoin macrocrystal 100 mg capsule 100 mg PO BID 3 Days Qty: 6 RF: 0 Continued aspirin 325 mg Tablet,Delayed Release (Dr/Ec) 325 mg PO DAILY RF: 0 Discharge Orders: Discharge Order (Routine); Ordered 04/23/19 Ordered By: Darrell Martinez Admission Data Admit Date/Time: 04/19/19 23:42 Attending Provider: Darrell Martinez Admit Provider: David Cox Primary Care Provider: Chang Abreu Other Providers: [facility] ; David Cox Other Interventions: Discharge Summary Assessment (RN) Last Done: 04/23/19 13:23
== END 2019-04-23 14:40 | DRG 988 ==
LOC: 4W 15:39 → ED 15:39 → 4W 22:40 → SUATTDRO 04-19 23:42

== ENCOUNTER 2019-11-06 08:43 | Inpatient (IN) ==
[2019-11-06] MEDS ORDERED: HYDROmorphone INJ 0.5 MG/0.5 ML SYR IV PRN (09:02)
[2019-11-06] MEDS ORDERED: ACETAMINOPHEN 1000 MG/100 ML IV IV STA (10:03)
[2019-11-06] MEDS ORDERED: MoRPHine SULFATE 2 MG/ML CARP IV STA (10:05)
[2019-11-06 10:45] LABS: Basophils # (auto) 0.05 K/uL (0-0.2); Basophils % (auto) 0.7 %; Eosinophils # (auto) 0.27 K/uL (0-0.5); Eosinophils % (auto) 3.7 %; Hematocrit (blood only) 42.5 % (37-47); Hemoglobin 13.8 g/dL (12.0-16.0); Immature Granulocytes # (auto) 0.01 K/uL (0.00-0.02); Immature Granulocytes % (auto) 0.1 %; Lymphocytes % (auto) 15.2 %; Mean Corpuscular Hemoglobin 26.5 pg (25-34); Mean Corpuscular Hgb Conc 32.5 g/dL (32-36); Mean Corpuscular Volume 81.6 fL (80-100); Mean Platelet Volume 10.4 fL (7.4-10.4); Monocytes # (auto) 0.33 K/uL (0.11-0.59); Monocytes % (auto) 4.6 %; Neutrophils # (auto) 5.46 K/uL (1.4-6.5); Neutrophils % (auto) 75.7 %; Platelet Count 242 K/uL (130-400); RDW Coefficient of Variation 14.3 % (11.5-14.5); RDW Standard Deviation 42.7 fL (36.4-46.3); Red Blood Count 5.21 M/uL (4.2-5.4); White Blood Count 7.22 K/uL (4.8-10.8)
[2019-11-06 10:57] LABS: Appearance Urine Clear (Clear); Bacteria Urine Automated 2+ (Negative); Bilirubin Urine Negative (Negative); Blood Urine Negative (Negative); Color Urine Yellow; Epithelial Cell Urine Auto >30 /lpf (0-5); Glucose Urine UA Negative (Negative); Ketones Urine Negative (Negative); Leukocyte Esterase Urine 1+ (Negative); Nitrite Urine Positive (Negative); Protein Urine Negative (Negative); RBC Urine Automated 0-4 /hpf (0-4); Specific Gravity Urine 1.011 (1.000-1.030); Urobilinogen Urine Negative (Negative); pH Urine 6.5 (4.5-7.5)
[2019-11-06 11:12] LABS: Albumin Level 3.3 gm/dl (3.4-5.0); BUN Creatinine Ratio 10.2 (10-20); Creatinine Clr Calc Pharmacy 57.4 ml/min; Est GFR (African American) 79.4; Est GFR (Non-African American) 68.5
[2019-11-06 11:14] LABS: Albumin Globulin Ratio 0.8 (0.9-2); Bilirubin,Total 0.3 mg/dl (0.2-1); Globulin 3.9 gm/dl (2.5-4.0); Total Protein 7.2 gm/dl (6.4-8.2)
[2019-11-06] MEDS ORDERED: IOVERSOL 100ml IV PRN (12:17)
--- NOTE | 2019-11-06 12:31 | CT Scan Report ---
CT lumbar spine wo con HISTORY: 79 years-old Female low back pain after fall, unable to stand d/t pain acute low back pain status post fall COMPARISON: CT abdomen and pelvis 04/17/2019 TECHNIQUE: Multiple axial CT images of the lumbar spine were obtained without the use of IV contrast. A dose lowering technique was used consistent with the principals of ALARA. FINDINGS: 13 degrees levoscoliosis measured from L1-L4. Intratrochanteric now with elongated medullary sarah is n oted involving the right hip on the advertising account representative localizer images. Dystrophic calcifications of the medial p roximal mid right femur. No aortic aneurysm or adenopathy identified. Severe disc space narrowing at L4-L5 with L4-L5 and L5-S1 vacuum disc phenomenon. Posterior annular disc bulging is noted at multipl e levels. There is a posterior disc osteophyte complex at L4-L5 which results in at least moderate se nany central canal stenosis. There is severe multilevel facet arthrosis. Minimal superior endplate co mpression deformity at L1 is unchanged. No acute fracture or subluxation identified. The imaged sacru m and iliac bones appear intact. There is no paravertebral edema. Multilevel foraminal narrowing, mos t pronounced on the left at L4-L5 and L5-S1. IMPRESSION: 1. No acute fracture or subluxation. 2. Lumbar levoscoliosis with degenerative changes as above, most pronounced at L4-L5. ACT 112: Negative or not required by law. The above report was generated using voice recognition software. It may contain grammatical, syntax o r spelling errors. Electronically signed by: Kye Cao M.D. 11/06/2019 12:30 PM
--- NOTE | 2019-11-06 12:40 | CT Scan Report ---
ABDOMEN AND PELVIS CT WITH IV CONTRAST CT DOSE: 401.78 mGy.cm HISTORY: Acute low back pain status post fall right flank contusion, hip/back pain fall TECHNIQUE: Multiaxial CT images of the abdomen and pelvis were performed following the IV administrat ion of 94 cc of Optiray 320, A dose lowering technique was utilized adhering to the principles of AL LISSA. COMPARISON STUDY: CT abdomen and pelvis 04/17/2019 FINDINGS: Minimal subsegmental bibasilar atelectasis. No pneumatosis or pneumoperitoneum. Coronary artery calci fications. The spleen is unremarkable. 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 Mi ld generalized pancreatic atrophy. Mild thickening of the gel glands suggestive of hyperplasia. There is mild gallbladder distention with equivocal gallbladder wall thickening. No shadowing cholelithias is or pericholecystic edema identified. The liver is unremarkable. 10 mm hypodense focus of the inferior pole right kidney suggest probable cyst. 4 mm nonobstructing ca lculus of the inferior pole right kidney. No obstructive uropathy. Partial distention of the urinary bladder with Pinto catheter. Air is noted within the nondependent bladder lumen. Mild thickening of t he fundal endometrium. No adnexal mass lesions. Mixed plaque the abdominal aorta without aneurysm. No adenopathy. No bowel obstruction. No bowel obstruction. Moderate fecal retention of the right hemicolon. Noninfla med appendix. Soft tissues are unremarkable. Partially imaged orthopedic hardware of the right femur. No acute fracture identified. Multiple healed remote right-sided rib fractures. IMPRESSION: 1. No acute intra-abdominal or intrapelvic abnormality. 2. No acute fracture identified. 3. Mild gallbladder distention with equivocal wall thickening. This finding could be correlated with a follow-up right upper quadrant abdominal ultrasound. 4. Abnormal thickening of the fundal endometrium redemonstrated. 5. Nonobstructing right nephrolithiasis. 6. Additional findings as above. ACT 112: Negative or not required by law. The above report was generated using voice recognition software. It may contain grammatical, syntax o r spelling errors. Electronically signed by: Kye Cao M.D. 11/06/2019 12:38 PM
[2019-11-06] MEDS ORDERED: HYDROCODONE/ACETAMOPHEN 5/325MG TAB PO STA (13:14)
--- NOTE | 2019-11-06 13:14 | Emergency Department Note ---
ED Visit Note This patient was seen in concert with Dr. Burrows. We discussed and agreed upon the history, physical, assessment and plan. . Resident Activity Tracking Resident Involvement: Resident Care Provided Care Provided: Adult ED
--- NOTE | 2019-11-06 13:59 | XRay Report ---
XR hips TREY 1v w pelvis HISTORY: 79 years-old Female fall 8 days ago, back pain . Back pain status post fall COMPARISON: CT abdomen and pelvis of same day TECHNIQUE: AP view of the pelvis with 2 views of the bilateral hips FINDINGS: Pinto catheter noted within the urinary bladder lumen. Excreted contrast is also noted within the saumya dder. Degenerative changes of the lower lumbar spine. 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 No acute fracture, dislocation or opaque foreign body. Demineralized appearance th e bones. Intratrochanteric nail with elongated right femoral medullary sarah. Dystrophic calcifications are noted involving the medial aspect of the proximal and mid right femur. No evidence of hardware f racture or loosening. IMPRESSION: No acute fracture or dislocation. ACT 112: Negative or not required by law. The above report was generated using voice recognition software. It may contain grammatical, syntax o r spelling errors. Electronically signed by: Kye Cao M.D. 11/06/2019 1:58 PM
--- NOTE | 2019-11-06 14:01 | XRay Report ---
XR lumbar spine 2-3V HISTORY: 79 years-old Female fall with bruising acute low back pain status post fall COMPARISON: CT abdomen and pelvis of same day TECHNIQUE: 3 views of the lumbar spine FINDINGS: 5 nonrib-bearing lumbar type vertebral segments are present. Severe disc space narrowing at L4-L5 wit h prominent spondylitic spurring. There is an acute compression deformity of the T11 vertebral body. No acute fracture or subluxation of the lumbar spine. Excreted contrast in the renal collecting syste ms and urinary bladder. IMPRESSION: 1. Acute T11 compression deformity without significant retropulsion. 2. No acute fracture or subluxation of the lumbar spine. ACT 112: Negative or not required by law. The above report was generated using voice recognition software. It may contain grammatical, syntax o r spelling errors. Electronically signed by: Kye Cao M.D. 11/06/2019 2:00 PM
--- NOTE | 2019-11-06 14:26 | Emergency Department Note ---
History of Present Illness General Chief complaint: Abdominal Pain Time Seen by Provider: 11/06/19 08:49 Source: patient and RN notes reviewed Mode of arrival: EMS History of Present Illness Provider complaint: Abdominal pain, back pain Maximum Pain Intensity: 10 This patient is a 79-year-old female who presents to the emergency department after falling 7 days ago. Patient states she has pain across the low back with any movement. There is an ecchymotic area to the right upper gluteal region. She states there is "something inside" that is injured. The patient apparently has been in bed for the last 7 days. She has been refusing to get up or move. The initial fall was apparently in the bathroom and her son found her. She denies hitting her head or passing out. She denies any chest pain or shortness of breath. Home Medications Home Medications Medication Instructions Recorded Confirmed Type aspirin [Aspirin Low Dose] 162 - 324 mg PO DAILY 11/06/19 11/06/19 History docusate sodium 100 mg PO UD 11/06/19 11/06/19 History Allergies Allergy/AdvReac Type Severity Reaction Status Date / Time No Known Allergies Allergy Unverified 11/06/19 09:33 Past Med/Surg History Medical History (Updated 11/08/19 @ 06:20 by Christina Burrows MD) Dehydration (Acute) Parkinson's disease dementia Tremor Surgical History Hip fracture requiring operative repair Family History Other Cancer Social History Preferred Language: [place] Communication Ability: Effective Green Marketing Analyst Required: No Beliefs That Will Affect Care: None marital status: / Current Living Situation: Family Current Living Situation Comment: lives with son Other Information That Helps Us Care for You: No Feels Safe at Home: Yes Safety Concerns: Feels Safe At This Time Smoking Status: Never smoker Hx Alcohol Use: No Hx Substance Use: No Review of Systems See HPI for pertinent positives & negatives. and A total of 10 systems reviewed and were otherwise negative Physical Exam Vital Signs Vital Signs - 24 hr 11/06/19 08:50 11/06/19 08:54 11/06/19 09:01 Temperature 36.8 C Temperature Source Oral Pulse Rate 63 69 58 L Pulse Rate from SpO2 Sensor 64 57 L Respiratory Rate 13 15 21 Respiratory Effort / Characteristics Non-Labored Spontaneous Respiratory Depth Normal Respiratory Pattern Regular Blood Pressure 149/76 H 149/76 H 123/64 Blood Pressure Mean 100 102 75 Blood Pressure Position Lying Pulse Oximetry 97 97 97 Oxygen Delivery Method Room Air Sepsis Recent Fever Within 48 Hours No Sepsis New/Unexplained Change in Mental Status No Sepsis Action Taken by Nursing No Action Required 11/06/19 09:30 11/06/19 10:00 11/06/19 10:30 Temperature Temperature Source Pulse Rate 59 L 64 57 L Pulse Rate from SpO2 Sensor 60 64 57 L Respiratory Rate 14 17 17 Respiratory Effort / Characteristics Respiratory Depth Respiratory Pattern Blood Pressure 136/70 139/81 137/70 Blood Pressure Mean 87 92 82 Blood Pressure Position Pulse Oximetry 98 98 100 Oxygen Delivery Method Sepsis Recent Fever Within 48 Hours Sepsis New/Unexplained Change in Mental Status Sepsis Action Taken by Nursing 11/06/19 11:00 11/06/19 11:30 11/06/19 12:00 Temperature Temperature Source Pulse Rate 60 54 L 58 L Pulse Rate from SpO2 Sensor 59 L 53 L 60 Respiratory Rate 17 14 14 Respiratory Effort / Characteristics Respiratory Depth Respiratory Pattern Blood Pressure 131/73 107/57 L 134/63 Blood Pressure Mean 88 67 83 Blood Pressure Position Pulse Oximetry 100 95 97 Oxygen Delivery Method Sepsis Recent Fever Within 48 Hours Sepsis New/Unexplained Change in Mental Status Sepsis Action Taken by Nursing 11/06/19 12:30 11/06/19 13:00 11/06/19 13:30 Temperature Temperature Source Pulse Rate 60 59 L 50 L Pulse Rate from SpO2 Sensor 60 59 L 50 L Respiratory Rate 15 14 14 Respiratory Effort / Characteristics Respiratory Depth Respiratory Pattern Blood Pressure 153/65 H 164/79 H 133/68 Blood Pressure Mean 98 96 85 Blood Pressure Position Pulse Oximetry 96 97 98 Oxygen Delivery Method Room Air Room Air Sepsis Recent Fever Within 48 Hours Sepsis New/Unexplained Change in Mental Status Sepsis Action Taken by Nursing Vital signs reviewed. General: Elderly 79-year-old female, in no significant distress. HEENT: No scleral icterus, PERRLA, neck supple. Atraumatic. Cardiovascular: Regular rate and rhythm, no extra sounds. Pulmonary: Clear to auscultation bilaterally, normal work of breathing. Abdomen: Soft, nontender, nondistended, positive bowel sounds. Musculoskeletal: Right gluteal ecchymotic area. Straight leg raise bilaterally with some discomfort but full range of motion of the bilateral hips. Pain with rolling in either direction across the low back however no pain to palpation over the LS spine. Neurologic: Patient awake alert and answers questions appropriately. Skin: Warm, dry, no rash Course Administered Medications Acetaminophen (Tylenol) 325 mg PO Q8H JUDI Stop: 12/07/19 07:59 Last Admin: 11/07/19 23:57 Dose: Not Given Documented by: [id number] Admin: 11/07/19 15:38 Dose: 325 mg Documented by: [id number] Admin: 11/07/19 09:10 Dose: 325 mg Documented by: [id number] Docusate Sodium (Colace) 100 mg PO BID JUDI Stop: 12/06/19 20:59 Last Admin: 11/07/19 19:41 Dose: 100 mg Documented by: [id number] Admin: 11/07/19 09:04 Dose: 100 mg Documented by: [id number] Admin: 11/06/19 22:07 Dose: 100 mg Documented by: [id number] Heparin Sodium (Porcine) (Heparin Sodium (Porcine)) 5,000 units SQ Q8 JUDI Stop: 12/06/19 21:59 Last Admin: 11/08/19 06:18 Dose: 5,000 units Documented by: [id number] Cosigned by: [id number] Admin: 11/07/19 21:34 Dose: 5,000 units Documented by: [id number] Cosigned by: [id number] Admin: 11/07/19 16:13 Dose: 5,000 units Documented by: [id number] Cosigned by: [id number] Admin: 11/07/19 06:02 Dose: 5,000 units Documented by: [id number] Cosigned by: [id number] Admin: 11/06/19 22:10 Dose: 5,000 units Documented by: [id number] Cosigned by: [id number] Dexamethasone Sodium Phosphate (4 mg/ Syringe) 1 mls @ 1 mls/min IV Q8H JUDI Stop: 12/06/19 15:59 Last Admin: 11/07/19 23:57 Dose: 1 mls/min Documented by: [id number] Admin: 11/07/19 16:02 Dose: 1 mls/min Documented by: [id number] Admin: 11/07/19 10:21 Dose: 1 mls/min Documented by: [id number] Admin: 11/07/19 01:14 Dose: 1 mls/min Documented by: [id number] Admin: 11/06/19 17:26 Dose: 1 mls/min Documented by: [id number] Ceftriaxone Sodium 1,000 mg/ (Dextrose) 50 mls @ 100 mls/hr IV Q24H [facility]; Protocol Stop: 11/11/19 16:14 Last Infusion: 11/07/19 17:09 Dose: 0 mls/hr Documented by: [id number] Admin: 11/07/19 16:02 Dose: 100 mls/hr Documented by: [id number] Infusion: 11/06/19 18:40 Dose: 0 mls/hr Documented by: [id number] Admin: 11/06/19 17:26 Dose: 100 mls/hr Documented by: [id number] Lidocaine (Lidoderm 5%) 1 patch TD DAILY@1900 [facility] Stop: 12/06/19 18:59 Last Admin: 11/07/19 19:38 Dose: 1 patch Documented by: [id number] Admin: 11/06/19 22:01 Dose: 1 patch Documented by: [id number] Miscellaneous (Remove Lidoderm Patch) 1 ea N/A DAILY@0700 [facility] Stop: 12/07/19 06:59 Last Admin: 11/07/19 06:15 Dose: 1 ea Documented by: [id number] Oxycodone HCl (Roxicodone Immediate Rel) 5 mg PO Q6H PRN PRN Reason: Pain Stop: 11/20/19 18:04 Last Admin: 11/07/19 06:13 Dose: 5 mg Documented by: [id number] Admin: 11/06/19 19:31 Dose: 5 mg Documented by: [id number] Pantoprazole Sodium (Protonix) 40 mg PO QAM [facility] Stop: 12/06/19 20:59 Last Admin: 11/07/19 09:04 Dose: 40 mg Documented by: [id number] Admin: 11/06/19 22:10 Dose: 40 mg Documented by: [id number] Polyethylene Glycol (Miralax Powder Packet) 17 gm PO Q12H [facility] Stop: 12/07/19 08:59 Last Admin: 11/07/19 19:41 Dose: 17 gm Documented by: [id number] Admin: 11/07/19 10:12 Dose: 17 gm Documented by: [id number] Discontinued Medications Acetaminophen (Ofirmev) 1,000 mg IV NOW STA Stop: 11/06/19 10:04 Last Admin: 11/06/19 11:09 Dose: 1,000 mg Documented by: [id number] Acetaminophen (Tylenol) 1,000 mg PO Q8H JUDI Stop: 12/06/19 18:59 Last Admin: 11/07/19 02:34 Dose: 1,000 mg Documented by: [id number] Admin: 11/06/19 19:33 Dose: 1,000 mg Documented by: [id number] Hydrocodone Bitart/Acetaminophen ([place] 5/325) 1 tab PO NOW STA Stop: 11/06/19 13:15 Last Admin: 11/06/19 14:10 Dose: 1 tab Documented by: [id number] Ioversol (Optiray 320 100ml) 94 ml IV ONCE PRN PRN Reason: Interaction Checking Stop: 11/10/19 12:16 Last Admin: 11/06/19 12:17 Dose: 94 ml Documented by: [id number] Morphine Sulfate (Morphine Sulfate) 2 mg IV NOW STA Stop: 11/06/19 10:06 Last Admin: 11/06/19 11:09 Dose: 2 mg Documented by: [id number] Medical Decision Making Differential Diagnosis Differential diagnosis: Etiologies such as muscular strain, fracture, metastatic disease, disc herniation, sciatica, epidural abscess, vertebral osteomyelitis, discitis, spinal epidural hematoma, cord compression, cauda equina/conus medullaris sy ndrome, aortic disease, infection, shingles, renal colic, gastrointestinal, acute exacerbation of chronic back pain, as well as others were entertained. Medical Records Attestation: I reviewed the patient's medical records. Home Medications Current Medication List: was personally reviewed by me Laboratory Data Attestation: I reviewed the patient's lab results. Result diagrams: 11/08/19 05:32 11/07/19 05:10 Lab Results 11/06/19 11/06/19 11/06/19 Range/Units 10:15 10:30 10:30 WBC 7.22 (4.8-10.8) K/uL RBC 5.21 (4.2-5.4) M/uL Hgb 13.8 (12.0-16.0) g/dL Hct 42.5 (37-47) % MCV 81.6 (80-100) fL MCH 26.5 (25-34) pg MCHC 32.5 (32-36) g/dL RDW Std Deviation 42.7 (36.4-46.3) fL RDW Coeff of Sheryl 14.3 (11.5-14.5) % Plt Count 242 (130-400) K/uL MPV 10.4 (7.4-10.4) fL Immature Gran % (Auto) 0.1 % Neut % (Auto) 75.7 % Lymph % (Auto) 15.2 % [place] % (Auto) 4.6 % Eos % (Auto) 3.7 % Baso % (Auto) 0.7 % Neut # (Auto) 5.46 (1.4-6.5) K/uL Lymph # (Auto) 1.10 L (1.2-3.4) K/uL [place] # (Auto) 0.33 (0.11-0.59) K/uL Eos # (Auto) 0.27 (0-0.5) K/uL Baso # (Auto) 0.05 (0-0.2) K/uL Immature Gran # (Auto) 0.01 (0.00-0.02) K/uL Sodium 141 (136-145) mmol/L Potassium 4.0 (3.5-5.1) mmol/L Chloride 109 H (98-107) mmol/L Carbon Dioxide 28 (21-32) mmol/L Anion Gap 4.0 (3-11) BUN 8 (7-18) mg/dl Creatinine 0.82 (0.6-1.2) mg/dl Est Cr Clr Drug Dosing 57.4 ml/min Est GFR ( Amer) 79.4 Est GFR (Non-Af Amer) 68.5 BUN/Creatinine Ratio 10.2 (10-20) Glucose 90 (70-99) mg/dl Calcium 9.0 (8.5-10.1) mg/dl Total Bilirubin 0.3 (0.2-1) mg/dl AST 24 (15-37) U/L ALT 33 (12-78) U/L Alkaline Phosphatase 143 H (45-117) U/L Total Protein 7.2 (6.4-8.2) gm/dl Albumin 3.3 L (3.4-5.0) gm/dl Globulin 3.9 (2.5-4.0) gm/dl Albumin/Globulin Ratio 0.8 L (0.9-2) Lipase 84 (73-393) U/L Urine Color Yellow Urine Appearance Clear (Clear) Urine pH 6.5 (4.5-7.5) Ur Specific [place] 1.011 (1.000-1.030) Urine Protein Negative (Negative) Urine Glucose (UA) Negative (Negative) Urine Ketones Negative (Negative) Urine Blood Negative (Negative) Urine Nitrite Positive A (Negative) Urine Bilirubin Negative (Negative) Urine Urobilinogen Negative (Negative) Ur Leukocyte Esterase 1+ H (Negative) Urine WBC (Auto) 10-30 H (0-5) /hpf Urine RBC (Auto) 0-4 (0-4) /hpf U Hyaline Cast (Auto) 1-5 (0-5) /lpf U Epithel Cells (Auto) >30 H (0-5) /lpf Urine Bacteria (Auto) 2+ H (Negative) Imaging Data Radiologist's Impression: ADDENDUM Upon further review of the case, there is an acute T11 compression deformity with 3 mm retropulsion. No significant central canal stenosis. Electronically signed by: Kye Cao M.D. 11/06/2019 2:02 PM ADDENDUM END ABDOMEN AND PELVIS CT WITH IV CONTRAST CT DOSE: 401.78 mGy.cm HISTORY: Acute low back pain status post fall right flank contusion, hip/back pain fall TECHNIQUE: Multiaxial CT images of the abdomen and pelvis were performed following the IV administration of 94 cc of Optiray 320, A dose lowering technique was utilized adhering to the principles of ALARA. COMPARISON STUDY: CT abdomen and pelvis 04/17/2019 FINDINGS: Minimal subsegmental bibasilar atelectasis. No pneumatosis or pneumoperitoneum. Coronary artery calcifications. The spleen is unremarkable. 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 Mild generalized pancreatic atrophy. Mild thickening of the gel glands suggestive of hyperplasia. There is mild gallbladder distention with equivocal gallbladder wall thickening. No shadowing cholelithiasis or pericholecystic edema identified. The liver is unremarkable. 10 mm hypodense focus of the inferior pole right kidney suggest probable cyst. 4 mm nonobstructing calculus of the inferior pole right kidney. No obstructive uropathy. Partial distention of the urinary bladder with Pinto catheter. Air is noted within the nondependent bladder lumen. Mild thickening of the fundal endometrium. No adnexal mass lesions. Mixed plaque the abdominal aorta without aneurysm. No adenopathy. No bowel obstruction. No bowel obstruction. Moderate fecal retention of the right hemicolon. Noninflamed appendix. Soft tissues are unremarkable. Partially imaged orthopedic hardware of the right femur. No acute fracture identified. Mul tiple healed remote right-sided rib fractures. IMPRESSION: 1. No acute intra-abdominal or intrapelvic abnormality. 2. No acute fracture identified. 3. Mild gallbladder distention with equivocal wall thickening. This finding could be correlated with a follow-up right upper quadrant abdominal ultrasound. 4. Abnormal thickening of the fundal endometrium redemonstrated. 5. Nonobstructing right nephrolithiasis. 6. Additional findings as above. ACT 112: Negative or not required by law. The above report was generated using voice recognition software. It may contain grammatical, syntax or spelling errors. Electronically signed by: Kye Cao M.D. 11/06/2019 12:38 PM Dictated: 11/06/19 1230 Transcribed: 11/06/[address] lumbar spine wo con HISTORY: 79 years-old Female low back pain after fall, unable to stand d/t pain acute low back pain status post fall COMPARISON: CT abdomen and pelvis 04/17/2019 TECHNIQUE: Multiple axial CT images of the lumbar spine were obtained without the use of IV contrast. A dose lowering technique was used consistent with the principals of ASHLEIGHRA. FINDINGS: 13 degrees levoscoliosis measured from L1-L4. Intratrochanteric now with elongated medullary sarah is noted involving the right hip on the outreach director localizer images. Dystrophic calcifications of the medial proximal mid right femur. No aortic aneurysm or adenopathy identified. Severe disc space narrowing at L4-L5 with L4-L5 and L5-S1 vacuum disc phenomenon. Posterior annular disc bulging is noted at multiple levels. There is a posterior disc osteophyte complex at L4-L5 which results in at least moderate severe central canal stenosis. There is severe multilevel facet arthrosis. Minimal superior endplate compression deformity at L1 is unchanged. No acute fracture or subluxation identified. The imaged sacrum and iliac bones appear intact. There is no paravertebral edema. Multilevel foraminal narrowing, most pronounced on the left at L4-L5 and L5-S1. IMPRESSION: 1. No acute fracture or subluxation. 2. Lumbar levoscoliosis with degenerative changes as above, most pronounced at L4-L5. ACT 112: Negative or not required by law. The above report was generated using voice recognition software. It may contain grammatical, syntax or spelling errors. Electronically signed by: Kye Cao M.D. 11/06/2019 12:30 PM Dictated: 11/06/19 1224 Transcribed: 11/06/19 1224 XR lumbar spine 2-3V HISTORY: 79 years-old Female fall with bruising acute low back pain status post fall COMPARISON: CT abdomen and pelvis of same day TECHNIQUE: 3 views of the lumbar spine FINDINGS: 5 nonrib-bearing lumbar type vertebral segments are present. Severe disc space narrowing at L4-L5 with prominent spondylitic spurring. There is an acute compression deformity of the T11 vertebral body. No acute fracture or subluxation of the lumbar spine. Excreted contrast in the renal collecting systems and urinary bladder. IMPRESSION: 1. Acute T11 compression deformity without significant retropulsion. 2. No acute fracture or subluxation of the lumbar spine. ACT 112: Negative or not required by law. The above report was generated using voice recognition software. It may contain grammatical, syntax or spelling errors. Electronically signed by: Kye Cao M.D. 11/06/2019 2:00 PM Dictated: 11/06/19 1358 Transcribed: 11/06/19 1358 XR hips TREY 1v w pelvis HISTORY: 79 years-old Female fall 8 days ago, back pain . Back pain status post fall COMPARISON: CT abdomen and pelvis of same day TECHNIQUE: AP view of the pelvis with 2 views of the bilateral hips FINDINGS: Pinto catheter noted within the urinary bladder lumen. Excreted contrast is also noted within the bladder. Degenerative changes of the lower lumbar spine. 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 No acute fracture, dislocation or opaque foreign body. Demineralized appearance the bones. Intratrochanteric nail with elongated right femoral medullary sarah. Dystrophic calcifications are noted involving the medial aspect of the proximal and mid right femur. No evidence of hardware fracture or loosening. IMPRESSION: No acute fracture or dislocation. ACT 112: Negative or not required by law. The above report was generated using voice recognition software. It may contain grammatical, syntax or spelling errors. Electronically signed by: Kye Cao M.D. 11/06/2019 1:58 PM Dictated: 11/06/19 1356 Transcribed: 11/06/19 1356 Blood Pressure Blood Pressure Findings: Elevated blood pressure Blood Pressure Disposition: elevated BP felt to be situational MDM Narrative This patient is a 79-year-old female who presents to the emergency department with complaints of back pain. Patient states her abdomen is also bothering her. Patient had a fall about 1 week ago and was found in the bathroom on the floor. Her son who lives with her was able to get her up and back into bed. Currently the patient does have some discomfort with straight leg raise bilaterally. She was medicated with IV fentanyl and Zofran. Gentle IV hydration was initiated. Initial CT images were read as negative for lumbar spine fracture or hip fracture. Patient was given [place] for pain relief and an ambulatory trial was attempted. Nursing staff was unable to get the patient up past 30 degrees without severe pain. Images were reviewed and a T11 compression fracture was noted. Patient's case was discussed with the hospitalist service who will evaluate the patient for admission and further management. Impression & Plan Closed T11 fracture, Intractable back pain Discharge Plan Visit Data *Final* Discharge Date/Time: 11/06/19 17:27 Chief Complaint: Abdominal Pain ED Provider: Christina Burrows Discharge Problem: Closed T11 fracture, Intractable back pain Patient Disposition: Admitted As Inpatient Discharge Instructions Interventions: ED Discharge Assessment Last Done: 11/06/19 17:27 Discharge Problem: Closed T11 fracture Qualifiers: Encounter type: initial encounter Fracture morphology: burst- stable Qualified Code(s): S22.081A - Stable burst fracture of T11-T12 vertebra, initial encounter for closed fracture
--- NOTE | 2019-11-06 14:32 | Ultrasound Report ---
US gallbladder HISTORY: Pain. Nausea. distension COMPARISON: None. FINDINGS: 2 cm gallstone. No evidence for gallbladder distention. Common bile duct measures 3 mm. Liver is uniform throughout. Pancreas and right kidney are unremarkab le. Right kidney is negative for hydronephrosis. IMPRESSION: 1. 2 cm gallstone gallstone. 2. Normal caliber bile ducts. 3. Study is otherwise normal. ACT 112: Negative or not required by law. The above report was generated using voice recognition software. It may contain grammatical, syntax or spelling errors. Electronically signed by: Migel Wise M.D. 11/06/2019 2:31 PM
--- NOTE | 2019-11-06 16:07 | History & Physical Report ---
Date of Service November 06, 2019 Assessment & Plan (1) Back pain: (2) Abnormal CT of thoracic spine: This is a 79-year-old female with history of Parkinson's disease dementia who presents with back pain following fall 7 days ago and was found to have an acute T11 compression deformity with 3 mm retropulsion. -Fell onto her backside in the bathroom a week ago, presents with progressive ambulatory dysfunction and worsening pain -CT abd/pelvis with acute T11 compression deformity with [address]ulsion. Lumbar spine CT with lumbar levoscoliosis with degenerative changes as above, most pronounced at L4-L5 -Given narcotics in the ED with resulting lethargy and confusion - avoid when possible. Scheduling Tylenol 100mg Q8H, lidocaine patch, oxycodone 5mg Q6H as needed -Discussed with Dr. Jacobsen of ortho spine. Recommends IV dexamethasone 4 mg every 8 hours and pain control over the weekend with consideration for surgery if pain does not improve -PT/OT, evaluation for brace and discharge planning -Fall precautions, neuro checks (3) UTI (urinary tract infection), uncomplicated: UA abnormal. Patient with incontinence over the past few days when unable to ambulate to the toilet in time. Also with increased frequency of urination -Started empirically on Rocephin. Follow urine culture (4) Parkinson's disease dementia: Not on any medications. Tremors at baseline. Lives at home with , has family support nearby DVT Ppx: SQ heparin Code status: DNR per discussion with patient and daughter PCP: Sera Dispo: Admitted to med/surg. Discharge planning ordered. Patient seen in collaboration with Dr. Walker. Please see addendum. History of Present Illness Chief Complaint: Back pain after fall Primary Care Provider: Chang Abreu MD This is a 79-year-old female with history of Parkinson's disease dementia who presents with back pain following fall 7 days ago. Patient reportedly fell onto her backside in the bathroom a week ago but was able to get up on her own. Denies any head trauma or loss of consciousness. Lives with her son and did not report that she has been experiencing pain until today. Has had difficult time with ambulation, to the point that she has had urinary incontinence is resolved not be able to make it to the toilet. Pain has become markedly worse with movement since yesterday, describing pain as shooting and electrical in nature. Also feels like "something inside" is injured. Has a large bruise on right upper gluteal region but pain mostly localized on left gluteal region. Denies any numbness or paresthesias of lower extremities. Only medication patient takes at home is aspirin and stool softener. Daughter at bedside states that mom is tough and does not like to report any pain or discomfort. Daughter did not know about this until today. Denies any fever, chills, headache, lightheadedness, chest pain, shortness of breath, nausea, vomiting, abdominal pain, diarrhea or constipation. Increased urinary frequency but denies dysuria or hematuria. Allergies Allergy/AdvReac Type Severity Reaction Status Date / Time No Known Allergies Allergy Unverified 11/06/19 09:33 Home Medications Home Medications Medication Instructions Recorded Confirmed Type aspirin [Aspirin Low Dose] 162 - 324 mg PO DAILY 11/06/19 11/06/19 History docusate sodium 100 mg PO UD 11/06/19 11/06/19 History Past Med/Surg History Medical History (Updated 11/06/19 @ 17:52 by Destini Massey PA-C) Dehydration (Acute) Parkinson's disease dementia Tremor Surgical History Hip fracture requiring operative repair Family History Other Cancer Social History Preferred Language: Swedish Communication Ability: Effective Preassembler And Inspector Required: No Beliefs That Will Affect Care: None Current Living Situation: Family Current Living Situation Comment: lives with son Other Information That Helps Us Care for You: No Feels Safe at Home: Yes Safety Concerns: Feels Safe At This Time Smoking Status: Never smoker Hx Alcohol Use: No Hx Substance Use: No Review of Systems Review of Systems: At least ten systems reviewed and negative except as noted in the HPI. Physical Exam Physical Exam: General Appearance: WD/WN, vitals as above, NAD, acute distress 2/2 pain, conversing easily, BUE tremors Head: normocephalic, atraumatic Eyes: normal inspection, PERRL, conjunctivae normal, anicteric sclerae ENT: external ear and nose normal, oropharynx normal Neck: trachea midline, no thyromegaly normal visual inspection Respiratory: normal respiratory effort, lungs clear to auscultation, no wheeze, rales, rhonchi Cardiovascular: regular rate, rhythm, no murmur appreciated, normal peripheral pulses Chest: normal inspection of chest Abdomen/GI: normal bowel sounds, soft, R-sided TTP, no hepatosplenomegaly Extremities/Musculoskeletal: + Right gluteal ecchymotic area. TTP of right and left hip as well as lumbosacral paraspinal area. No TTP along thoracic spine. No cyanosis or clubbing, extremities motor strength 5/5 Neurologic: PERRL, EOMI, accommodation nl, no face palsy, no dysarthria, CN's II-XI intact bilaterally and moves all extremities Psychiatric: A+Ox3, +anxious Skin: no rashes, normal color, warm/dry Results & Data Results & Data ([facility]) Vital Signs (Past 12 Hours) Vital Signs Temp Pulse Resp BP Pulse Ox 11/06/19 16:01 57 L 12 97 11/06/19 16:00 57 L 13 132/65 98 11/06/19 15:50 56 L 14 98 11/06/19 15:40 58 L 15 11/06/19 15:30 66 21 99 11/06/19 15:20 153 H 22 11/06/19 15:10 50 L 10 L 99 11/06/19 15:00 49 L 9 L 140/63 99 11/06/19 14:40 53 L 22 152/73 H 98 11/06/19 13:30 50 L 14 133/68 98 11/06/19 13:00 59 L 14 164/79 H 97 11/06/19 12:30 60 15 153/65 H 96 11/06/19 12:00 58 L 14 134/63 97 11/06/19 11:30 54 L 14 107/57 L 95 11/06/19 11:00 60 17 131/73 100 11/06/19 10:30 57 L 17 137/70 100 11/06/19 10:00 64 17 139/81 98 11/06/19 09:30 59 L 14 136/70 98 11/06/19 09:01 58 L 21 123/64 97 11/06/19 08:54 69 15 149/76 H 97 11/06/19 08:50 36.8 C 63 13 149/76 H 97 Laboratory Results Short CBC 11/06/19 Range/Units 10:30 WBC 7.22 (4.8-10.8) K/uL Hgb 13.8 (12.0-16.0) g/dL Hct 42.5 (37-47) % Plt Count 242 (130-400) K/uL BMP 11/06/19 10:30 Sodium 141 Potassium 4.0 Chloride 109 H Carbon Dioxide 28 BUN 8 Creatinine 0.82 Glucose 90 Calcium 9.0 Liver Function 11/06/19 Range/Units 10:30 Total Bilirubin 0.3 (0.2-1) mg/dl AST 24 (15-37) U/L ALT 33 (12-78) U/L Alkaline Phosphatase 143 H (45-117) U/L Albumin 3.3 L (3.4-5.0) gm/dl Urine 11/06/19 Range/Units 10:15 Urine Color Yellow Urine Appearance Clear (Clear) Urine pH 6.5 (4.5-7.5) Ur Specific [place] 1.011 (1.000-1.030) Urine Protein Negative (Negative) Urine Glucose (UA) Negative (Negative) Diagnostic Findings GB ultrasound: IMPRESSION: 1. 2 cm gallstone gallstone. 2. Normal caliber bile ducts. 3. Study is otherwise normal. CT abd/pelvis: IMPRESSION: 1. No acute intra-abdominal or intrapelvic abnormality. 2. No acute fracture identified. 3. Mild gallbladder distention with equivocal wall thickening. This finding could be correlated with a follow-up right upper quadrant abdominal ultrasound. 4. Abnormal thickening of the fundal endometrium redemonstrated. 5. Nonobstructing right nephrolithiasis. 6. Additional findings as above. *Addendum: upon further review of the case, there is an acute T11 compression deformity with 3 mm retropulsion. No significant central canal stenosis. Hip/pelvis XR: IMPRESSION: No acute fracture or dislocation. Lumbar spine XR: IMPRESSION: 1. Acute T11 compression deformity without significant retropulsion. 2. No acute fracture or subluxation of the lumbar spine. Lumbar spine CT: IMPRESSION: 1. No acute fracture or subluxation. 2. Lumbar levoscoliosis with degenerative changes as above, most pronounced at L4-L5. Code Status & VTE Plan VTE Prophylaxis Plan VTE Prophylaxis will be ordered: Yes Supervising Physician Co-Signing Physician Notes Patient was seen and examined by me, care coordinated with Destini Massey PA-C. Please see her note above for further details. Mrs. Membreno is a 79-year-old female, with history of osteoarthritis, constipation, Parkinson's dementia, and tremor who presents with worsening back pain, after a fall 1 week ago. Patient's daughter is present at the bedside, states that the patient lives with her brother, patient's son. Pt was reportedly lowering herself onto the toilet and missed, and hit her left upper buttocks and also left arm which are significantly bruised, pictures obtained by family members. Patient did not hit her head. She has been having more pain however over the past week and therefore was taken to the hospital. In the ED, x-rays and CT images were obtained, significant finding of a T11 compression deformity with 3 millimeters retropulsion noted. In ED patient received IV Tylenol, [place] and morphine for pain control. UA was also noted positive for bacteria and nitrite. Patient was hospitalized in March 2009, at that time she was hospitalized due to constipation and also endometrial thickening was evaluated, this turned out to be benign. She was then transferred to [facility] for further care. At home she only takes aspirin and stool softeners. Currently patient is lying in bed, mildly uncomfortable, especially if she is moving. She is alert and oriented and answers questions appropriately. Lungs are clear to auscultation bilaterally, without any wheezing, rhonchi or crackles. Heart sounds are regular, no murmurs noted. Abdomen is soft, nontender, nondistended, bowel sounds are present. She is having quite difficult time moving her lower extremities, however denies any numbness or tingling. Also denies any incontinence. [place] catheter was placed in the ED. On back evaluation, patient is in pain when moved and turned on her side, however there is no point tenderness over palpation of her spine, she has left upper buttocks large ecchymotic lesion, but she is tender to palpation in her lower back area bilaterally and upper buttocks area bilaterally. [facility]ospine, Dr. Jacobsen contacted, recommends brace, will further evaluate. Will provide lidocaine patch, and dexamethasone IV, will try to avoid opioids. Will start Rocephin for UTI. Kim Walker MD
[2019-11-06] MEDS: cefTRIAXone SODIUM 1,000 MG in DEXTROSE 5% 50 ML IV SCH (17:26)
[2019-11-06] MEDS: DEXAMETHASONE SOD PHOSPHATE 4 MG in SYRINGE 0 ML IV SCH (17:26)
[2019-11-06] MEDS: OXYCODONE HCL IR 5 MG TAB (IMMEDIATE RELEASE) PO PRN (19:31)
[2019-11-06] MEDS: ACETAMINOPHEN 500 MG TAB PO SCH (19:33)
[2019-11-06] MEDS ORDERED: PROMETHAZINE HCL 6.25 MG in SODIUM CHLORIDE 0.9% 50 ML IV PRN (19:59)
[2019-11-06] MEDS: LIDOCAINE 5% 1 PATCH TD SCH (22:01)
[2019-11-06] MEDS: DOCUSATE SODIUM 100 MG CAP PO SCH (22:07)
[2019-11-06] MEDS: PANTOprazole 40 MG TAB PO SCH (22:10)
[2019-11-06] MEDS: HEPARIN SOD 5,000 UNIT/0.5 ML VIAL SQ SCH (22:10)
[2019-11-07] MEDS: DEXAMETHASONE SOD PHOSPHATE 4 MG in SYRINGE 0 ML IV SCH ×4 (01:14→23:57)
[2019-11-07] MEDS: ACETAMINOPHEN 500 MG TAB PO SCH (02:34)
[2019-11-07] MEDS: HEPARIN SOD 5,000 UNIT/0.5 ML VIAL SQ SCH ×3 (06:02→21:34)
[2019-11-07] MEDS: OXYCODONE HCL IR 5 MG TAB (IMMEDIATE RELEASE) PO PRN (06:13)
[2019-11-07 06:29] LABS: Hematocrit (blood only) 43.1 % (37-47); Hemoglobin 13.7 g/dL (12.0-16.0); Mean Corpuscular Hemoglobin 26.7 pg (25-34); Mean Corpuscular Hgb Conc 31.8 g/dL (32-36); Mean Platelet Volume 11.3 fL (7.4-10.4); Platelet Count 267 K/uL (130-400); RDW Coefficient of Variation 14.4 % (11.5-14.5); RDW Standard Deviation 44.6 fL (36.4-46.3); Red Blood Count 5.13 M/uL (4.2-5.4); White Blood Count 5.72 K/uL (4.8-10.8)
[2019-11-07 07:09] LABS: BUN Creatinine Ratio 13.8 (10-20); Calcium 9.1 mg/dl (8.5-10.1); Creatinine Clr Calc Pharmacy 45.7 ml/min; Est GFR (African American) 60.3; Potassium 4.5 mmol/L (3.5-5.1)
--- NOTE | 2019-11-07 08:55 | Hospitalist Progress Note ---
Date of Service November 07, 2019 Assessment & Plan (1) Back pain: (2) Abnormal CT of thoracic spine: -This is a 79-year-old female with history of Parkinson's disease dementia who presents with back pain following fall 7 days ago and was found to have an acute T11 compression deformity with 3 mm retropulsion. -Fell onto her backside in the bathroom a week ago, presents with progressive ambulatory dysfunction and worsening pain -CT abd/pelvis with acute T11 compression deformity with [address]ulsion. Lumbar spine CT with lumbar levoscoliosis with degenerative changes as above, most pronounced at L4-L5 -Given narcotics in the ED with resulting lethargy and confusion - avoid when possible. Scheduling Tylenol 100mg Q8H, lidocaine patch, oxycodone 5mg Q6H as needed -admitting team Discussed with Dr. Jacobsen of ortho spine. Recommends IV dexamethasone 4 mg every 8 hours and pain control over the weekend with consideration for surgery if pain does not improve -hospitalist team will defer to orthopedics on when steroids should be tapered versus when to discontinue -PT/OT, evaluation for assessment of mobility back brace evaluation -monitor the bowel movements (3) UTI (urinary tract infection), uncomplicated: -UA abnormal. Patient with incontinence over the past few days when unable to ambulate to the toilet in time. Also with increased frequency of urination -Started empirically on Rocephin. Follow urine culture -continue yanes for now, follow blood cultures (4) Parkinson's disease dementia: Tremors from Parkinson's versus Benign Essential Tremors -Not on any medications. Tremors at baseline. Lives at home with , has family support nearby DVT Ppx: SQ heparin Code status: DNR per discussion with patient and daughter as per admitting team PCP: Sera Dispo: Admitted to med/surg. Discharge planning ordered. Admission and Anticipated Discharge Date Admission Date: November 06, 2019 Subjective Patient seen and examined. She was eating the breakfast but because of her known hand tremors, she needed assistance with opening the butter and jam and help to spread this on her bread. no distress. patient reports that when she is not moving much, the low back back is not exacerbated. patient has yanes draining urine.she does not recall when last time with bowel movements. breathing on room air. no nausea. no chest pain. no shortness of breath. no dizziness. no headache. Review of Systems Review of Systems: All systems reviewed & are unremarkable except as noted in Subjective Physical Exam Constitutional: cooperative Eyes: PERRL, conjunctivae normal, anicteric sclerae EOM intact bilaterally ENMT: external ear and nose normal, oropharynx normal Neck: trachea midline, no thyromegaly normal visual inspection Respiratory: normal respiratory effort, lungs clear to auscultation Cardiovascular: Rate/Rhythm: regular rate Gastrointestinal (Abdomen): normal bowel sounds, soft, nontender, no hepatosplenomegaly Musculoskeletal: Head/Neck/Chest: normocephalic and head atraumatic Neurologic: PERRL, EOMI, accommodation nl, no face palsy, no dysarthria Results & Data Results & Data ([facility]) Vital Signs (Past 12 Hours) Vital Signs Temp Pulse Resp BP Pulse Ox 11/07/19 07:01 36.7 C 62 18 98/60 L 93 11/07/19 00:00 36.7 C 65 18 111/68 95
[2019-11-07] MEDS: DOCUSATE SODIUM 100 MG CAP PO SCH ×2 (09:04→19:41)
[2019-11-07] MEDS: PANTOprazole 40 MG TAB PO SCH (09:04)
[2019-11-07] MEDS: ACETAMINOPHEN 325 MG TAB PO SCH ×3 (09:10→23:57)
[2019-11-07] MEDS: POLYETHYLENE (MIRALAX) 17 GM PACK PO SCH ×2 (10:12→19:41)
[2019-11-07] MEDS: cefTRIAXone SODIUM 1,000 MG in DEXTROSE 5% 50 ML IV SCH (16:02)
--- NOTE | 2019-11-07 16:28 | Magnetic Resonance Report ---
MRI OF THE LUMBAR SPINE WITHOUT IV CONTRAST CLINICAL HISTORY: Low back pain. Leg pain. COMPARISON STUDY: CT of the lumbar spine dated 11/06/2019. TECHNIQUE: MRI of the lumbar spine is performed using various T1 and T2-weighted sequences in the axi al and sagittal planes. IV contrast was not administered for this examination. The examination is sig nificantly compromised by motion artifact, and the patient declined to complete the axial T2-weighted sequences. FINDINGS: Lumbar spine: Vertebral body height is maintained at the lumbar spine. There is minimal anterolisthes is at L4-L5. Alignment is otherwise preserved. There is an acute to subacute compression fracture of T11 with associated marrow edema. There is only minimal retropulsion of fragments. The transverse and spinous processes appear intact. There is no evidence of spondylolysis. Anterior osteophytes are see n throughout. No destructive bony lesion is seen. Chronic degenerative endplate change and endplate e nadeen is noted at L4-L5. Intervertebral discs: Degenerative disc desiccation and loss of height is seen throughout the lumbar spine. Loss of height is moderate at L5-S1 and severe at L4-L5. Spinal cord: The partially imaged spinal cord is normal in morphology and signal intensity. The conus medullaris terminates at the level of L1. The nerve roots of the cauda equina are not well assessed. L1-L2: The central canal is clear. No high-grade neural foraminal stenosis is identified. L2-L3: There is minimal posterior disc bulge. The central canal is clear with a minimum AP diameter o f 8 mm. There is mild bilateral subarticular stenosis, with right greater than left neural foraminal narrowing. L3-L4: There is broad-based posterior disc bulge. In conjunction with hypertrophy ligamentum flavum t here is moderate central canal stenosis at this level. The minimum AP diameter measures 6 mm. There i s bilateral subarticular stenosis. In conjunction with facet arthropathy there is moderate bilateral neural foraminal narrowing. L4-L5: There is broad-based posterior disc bulge. In conjunction with hypertrophy of the ligamentum f lavum and anterolisthesis there is moderate to severe central canal stenosis at this level. The minim um AP canal diameter measures 5 mm. There is moderate to severe left and moderate right neural forami nal stenosis in conjunction with facet arthropathy. L5-S1: There is broad-based posterior disc bulge. There is no significant acquired compromise of the central canal. There is bilateral subarticular stenosis, and in conjunction with facet arthropathy th ere is mild bilateral neural foraminal narrowing. Sacrum: There is significant marrow edema identified within the sacrum involving S2 and S3 which exte nds into the left sacral ala. This is consistent with nondisplaced fracture. Soft tissues: There is mild fatty atrophy of the paraspinous musculature. The partially imaged kidney s demonstrate cortical atrophy. No retroperitoneal adenopathy is identified. Note that the retroperit ibrahim structures were much better assessed on the 11/06/[address] IMPRESSION: 1. Significantly motion compromised examination. The patient also declined to complete the procedure due to discomfort. 2. Again seen is an acute to subacute compression fracture of T11 with moderate loss of height. There is only minimal retropulsion of fragments. 3. Nondisplaced sacral fracture as above. 4. There is no MRI evidence of fracture or malalignment involving the lumbar spine. 5. Lumbosacral spondylosis with multilevel acquired compromise of the central canal. See discussion f or detailed level by level analysis. Dictated: 11/07/2019 3:12 PM Transcribed: 11/07/2019 4:14 PM Michelle [id number] [email or web address] Electronically signed by: Jarett Cabral M.D. 11/07/2019 4:27 PM
--- NOTE | 2019-11-07 16:29 | Magnetic Resonance Report ---
MRI OF THE THORACIC SPINE WITHOUT IV CONTRAST CLINICAL HISTORY: Thoracic back pain. Leg pain. COMPARISON STUDY: No priors. TECHNIQUE: MRI of the thoracic spine is performed utilizing various T1 and T2-weighted sequences in t he axial and sagittal planes. IV contrast was not administered for this examination. The examination is modestly degraded by motion artifact as well as suboptimal positioning due to hyperkyphosis. FINDINGS: There is a moderate acute to subacute compression fracture of T11 with significant marrow e nadeen. There is only minimal retropulsion of fragments. There are mild chronic superior endplate compr ession deformities of T8 and T9. Vertebral body height is otherwise maintained throughout the thoraci c spine. Alignment is preserved. Hyperkyphosis is noted. There are small anterior osteophytes. The sp inous processes appear intact. No destructive bony lesion is seen. Degenerative disc desiccation is s een throughout the thoracic spine with mild multilevel loss of height. There is a disc herniation ecc entric to the left is seen at T4-T5 which effaces the thoracic spinal cord at this level. This is bes t seen on sagittal image #8. A tiny posterior disc bulge is noted at T7-T8. The thoracic spinal cord is normal in morphology and signal intensity. There is no evidence of high-grade neural foraminal pietro nosis throughout the thoracic spine. The paraspinous soft tissues are normal as imaged. The lung pare nchyma is grossly unremarkable but not well evaluated by MRI. Trace pleural effusions are noted. IMPRESSION: 1. There is an acute to subacute compression fracture of T11 with moderate loss of height. There is o nly minimal retropulsion of fragments. 2. Additional chronic compression deformities as above. 3. Hyperkyphosis. 4. A disc herniation eccentric to the left at T4-T5 mildly effaces the thoracic cord. 5. The thoracic spinal cord is normal in morphology and signal intensity. Dictated: 11/07/2019 2:27 PM Transcribed: 11/07/2019 4:10 PM Michelle [id number] [email or web address] Electronically signed by: Jarett Cabral M.D. 11/07/2019 4:28 PM
[2019-11-07] MEDS: LIDOCAINE 5% 1 PATCH TD SCH (19:38)
[2019-11-08 06:10] LABS: Hematocrit (blood only) 40.1 % (37-47); Hemoglobin 12.9 g/dL (12.0-16.0); Mean Corpuscular Hemoglobin 26.9 pg (25-34); Mean Corpuscular Hgb Conc 32.2 g/dL (32-36); Mean Corpuscular Volume 83.5 fL (80-100); Mean Platelet Volume 11.1 fL (7.4-10.4); Platelet Count 258 K/uL (130-400); RDW Coefficient of Variation 14.3 % (11.5-14.5); RDW Standard Deviation 43.4 fL (36.4-46.3); White Blood Count 8.94 K/uL (4.8-10.8)
[2019-11-08] MEDS: HEPARIN SOD 5,000 UNIT/0.5 ML VIAL SQ SCH ×3 (06:18→21:06)
[2019-11-08] MEDS ORDERED: Nursing to Pharmacy Communication SCH (06:30)
[2019-11-08 06:47] LABS: BUN Creatinine Ratio 18.8 (10-20); Calcium 8.7 mg/dl (8.5-10.1); Creatinine Clr Calc Pharmacy 51.8 ml/min; Est GFR (Non-African American) 60.4; Potassium 4.3 mmol/L (3.5-5.1)
[2019-11-08] MEDS: POLYETHYLENE (MIRALAX) 17 GM PACK PO SCH (09:37)
[2019-11-08] MEDS: PANTOprazole 40 MG TAB PO SCH (09:38)
[2019-11-08] MEDS: DOCUSATE SODIUM 100 MG CAP PO SCH (09:38)
[2019-11-08] MEDS: ACETAMINOPHEN 325 MG TAB PO SCH ×2 (09:39→15:43)
--- NOTE | 2019-11-08 11:03 | Orthopedic Progress Note ---
Date of Service November 08, 2019 Assessment & Plan (1) Closed T11 fracture: The patient was not available for exam and evaluation today however I was able to review her MRI imaging. Does demonstrate a small discrimination the upper thoracic region which is of little concern. She does however have a acute compression fracture of T11 as well as an acute fracture of S 2 S3 level of the sacrum. She does demonstrate significant multilevel spinal stenosis throughout the lumbar spine including a spinal listhesis L4-L5. Suspect majority of symptoms today are related to the sacral fracture with some component of the T11 fracture. We could consider kyphoplasty of T11 but the sacral fracture would have to heal in time. This point I would recommend 24 to 48-hour course of IV Decadron to help with her pain. We will make further assessment in the next few days. Present on Admission?: Yes Admission and Anticipated Discharge Date Admission Date: November 06, 2019 Subjective Patient was not in her room for exam or evaluation today. Results & Data ([facility]) Vital Signs (Past 12 Hours) Vital Signs Temp Pulse Resp BP Pulse Ox 11/08/19 07:35 36.7 C 58 L 17 132/69 94 (1) Closed T11 fracture Encounter type: initial encounter Fracture morphology: burst- stable Qualified Code(s): S22.081A - Stable burst fracture of T11-T12 vertebra, initial encounter for closed fracture
--- NOTE | 2019-11-08 11:32 | Hospitalist Progress Note ---
Date of Service November 08, 2019 Assessment & Plan (1) Back pain: (2) Abnormal CT of thoracic spine: acute back pain acute T11 compression deformity with 3 mm retropulsion (closed T11 fracture) -This is a 79-year-old female with history of Parkinson's disease dementia who presents with back pain following fall 7 days ago and was found to have an acute T11 compression deformity with 3 mm retropulsion. -Fell onto her backside in the bathroom a week ago, presents with progressive ambulatory dysfunction and worsening pain -CT abd/pelvis with acute T11 compression deformity with 3 [address]ulsion. Lumbar spine CT with lumbar levoscoliosis with degenerative changes as above, most pronounced at L4-L5 -Given narcotics in the ED with resulting lethargy and confusion - avoid when possible. Scheduling Tylenol 100mg Q8H, lidocaine patch, oxycodone 5mg Q6H as needed -admitting team Discussed with Dr. Jacobsen of ortho spine who Recommended IV dexamethasone 4 mg every 8 hours and pain control over the weekend with consideration for surgery if pain does not improve -PT/OT evaluations 11/08/2019: Patient reports back pain feeling much better today. She was seen and examined after ambulating with walker under supervision and to bathroom for bowel movements. Her yanes to be removed because she can demonstrate that she can move. orthopedics recommended to continue IV dexamethasone further. an order has been placed fro orthotics for back brace (3) UTI (urinary tract infection), uncomplicated: -UA abnormal. Patient with incontinence over the past few days when unable to ambulate to the toilet in time. Also with increased frequency of urination -Started empirically on ceftriaxone -pansensitive Escherichia coli in the urine culture -continue ceftriaxone (4) Parkinson's disease dementia: Tremors from Parkinson's versus Benign Essential Tremors -Not on any medications. Tremors at baseline. Lives at home with , has family support nearby DVT Ppx: SQ heparin Code status: DNR per discussion with patient and daughter as per admitting team PCP: Sera Dispo: Admitted to med/surg. Discharge planning ordered. Admission and Anticipated Discharge Date Admission Date: November 06, 2019 Subjective Patient reports back pain feeling much better today. She was seen and examined after ambulating with walker under supervision and to bathroom for bowel movements. Her yanes to be removed because she can demonstrate that she can move orthopedics recommended to continue IV dexamethasone further on room air, no chest pain, no shortness of breath, no abdomen pain, no vomiting Review of Systems Review of Systems: All systems reviewed & are unremarkable except as noted in Subjective Physical Exam Constitutional: cooperative Eyes: PERRL, conjunctivae normal, anicteric sclerae EOM intact bilaterally ENMT: external ear and nose normal, oropharynx normal Neck: trachea midline, no thyromegaly normal visual inspection Respiratory: normal respiratory effort, lungs clear to auscultation Cardiovascular: Rate/Rhythm: regular rate Gastrointestinal (Abdomen): normal bowel sounds, soft, nontender, no hepatosplenomegaly Musculoskeletal: Head/Neck/Chest: normocephalic and head atraumatic Neurologic: PERRL, EOMI, accommodation nl, no face palsy, no dysarthria Psychiatric: Orientation: alert and cooperative Results & Data Results & Data ([facility]) Vital Signs (Past 12 Hours) Vital Signs Temp Pulse Resp BP Pulse Ox 11/08/19 07:35 36.7 C 58 L 17 132/69 94
[2019-11-08] MEDS: DEXAMETHASONE SOD PHOSPHATE 4 MG in SYRINGE 0 ML IV SCH ×3 (13:09→20:15)
[2019-11-08] MEDS: cefTRIAXone SODIUM 1,000 MG in DEXTROSE 5% 50 ML IV SCH (17:02)
[2019-11-09] MEDS: ACETAMINOPHEN 325 MG TAB PO SCH ×3 (00:35→17:14)
[2019-11-09] MEDS: POLYETHYLENE (MIRALAX) 17 GM PACK PO PRN (00:43)
[2019-11-09] MEDS: DEXAMETHASONE SOD PHOSPHATE 4 MG in SYRINGE 0 ML IV SCH (04:58)
[2019-11-09] MEDS: HEPARIN SOD 5,000 UNIT/0.5 ML VIAL SQ SCH ×3 (05:52→20:27)
[2019-11-09 08:13] LABS: Eosinophils # (auto) 0.01 K/uL (0-0.5); Eosinophils % (auto) 0.1 %; Hematocrit (blood only) 40.3 % (37-47); Immature Granulocytes # (auto) 0.03 K/uL (0.00-0.02); Immature Granulocytes % (auto) 0.3 %; Lymphocytes # (auto) 0.84 K/uL (1.2-3.4); Mean Corpuscular Hemoglobin 26.9 pg (25-34); Mean Corpuscular Hgb Conc 32.3 g/dL (32-36); Mean Corpuscular Volume 83.4 fL (80-100); Mean Platelet Volume 10.8 fL (7.4-10.4); Monocytes # (auto) 0.41 K/uL (0.11-0.59); Monocytes % (auto) 4.4 %; Neutrophils % (auto) 86.2 %; Platelet Count 251 K/uL (130-400); RDW Coefficient of Variation 14.4 % (11.5-14.5); RDW Standard Deviation 43.9 fL (36.4-46.3); Red Blood Count 4.83 M/uL (4.2-5.4); White Blood Count 9.29 K/uL (4.8-10.8)
[2019-11-09 08:38] LABS: BUN Creatinine Ratio 18.8 (10-20); Calcium 9.3 mg/dl (8.5-10.1); Creatinine Clr Calc Pharmacy 55.4 ml/min; Est GFR (African American) 76.1; Est GFR (Non-African American) 65.6; Magnesium 2.4 mg/dl (1.8-2.4); Potassium 3.9 mmol/L (3.5-5.1)
[2019-11-09] MEDS: PANTOprazole 40 MG TAB PO SCH (09:15)
[2019-11-09] MEDS: DOCUSATE SODIUM 100 MG CAP PO SCH (09:16)
[2019-11-09] MEDS: LIDOCAINE 5% 1 PATCH TD SCH (09:16)
--- NOTE | 2019-11-09 11:49 | Hospitalist Progress Note ---
Date of Service November 09, 2019 Assessment & Plan (1) Back pain: (2) Abnormal CT of thoracic spine: acute back pain acute T11 compression deformity with 3 mm retropulsion (closed T11 fracture) -This is a 79-year-old female with history of Parkinson's disease dementia who presents with back pain following fall 7 days ago and was found to have an acute T11 compression deformity with 3 mm retropulsion. -Fell onto her backside in the bathroom a week ago, presents with progressive ambulatory dysfunction and worsening pain -CT abd/pelvis with acute T11 compression deformity with 3 [address]ropulsion. Lumbar spine CT with lumbar levoscoliosis with degenerative changes as above, most pronounced at L4-L5 -Given narcotics in the ED with resulting lethargy and confusion - avoid when possible. Scheduling Tylenol 100mg Q8H, lidocaine patch, oxycodone 5mg Q6H as needed -admitting team Discussed with Dr. Jacobsen of ortho spine who Recommended IV dexamethasone 4 mg every 8 hours and pain control over the weekend with consideration for surgery if pain does not improve -PT/OT evaluations 11/08/2019: Patient reports back pain feeling much better today. She was seen and examined after ambulating with walker under supervision and to bathroom for bowel movements. Her yanes to be removed because she can demonstrate that she can move. orthopedics recommended to continue IV dexamethasone further. an order has been placed for orthotics for back brace 11/09/2019: Patient's daughter Steffany [phone] was updated. Her wishes for patient to avoid surgery if possible and she would be agreeable for patient to go to physical rehabilitation facility after hospital stay. Patient was seen near noon time after working with therapy. Patient laying flat on the bed. Patient reports she feels miserable but not in acute distress. she reports today she was able to ambulate to bathroom with supervision, but I cannot verify with her nurse at this time. have encouraged patient to accept fitting for back brace once offered to her. will hold the IV solumedrol for now to see if patient can tolerate and ambulate off steroids. (3) UTI (urinary tract infection), uncomplicated: -UA abnormal. Patient with incontinence over the past few days when unable to ambulate to the toilet in time. Also with increased frequency of urination -Started empirically on ceftriaxone on 11/06/2019 -pansensitive Escherichia coli in the urine culture -continue ceftriaxone for now, send repeat UA (4) Parkinson's disease dementia: Tremors from Parkinson's versus Benign Essential Tremors -Not on any medications. Tremors at baseline. Lives at home with , has family support nearby DVT Ppx: SQ heparin Code status: DNR per discussion with patient and daughter as per admitting team PCP: Sera Dispo: Admitted to med/surg. Discharge planning ordered. Admission and Anticipated Discharge Date Admission Date: November 06, 2019 Subjective 11/09/2019: Patient's daughter Steffany [phone] was updated. Her wishes for patient to avoid surgery if possible and she would be agreeable for patient to go to physical rehabilitation facility after hospital stay. Patient was seen near noon time after working with therapy. Patient laying flat on the bed. Patient reports she feels miserable but not in acute distress. she reports today she was able to ambulate to bathroom with supervision, but I cannot verify with her nurse at this time. have encouraged patient to accept fitting for back brace once offered to her. will hold the IV solumedrol for now to see if patient can tolerate and ambulate off steroids. breathing on room air. no respiratory distress. no other symptoms Review of Systems Review of Systems: All systems reviewed & are unremarkable except as noted in Subjective Physical Exam Constitutional: cooperative Eyes: PERRL, conjunctivae normal, anicteric sclerae EOM intact bilaterally ENMT: external ear and nose normal, oropharynx normal Neck: trachea midline, no thyromegaly normal visual inspection Respiratory: normal respiratory effort, lungs clear to auscultation Cardiovascular: Rate/Rhythm: regular rate Gastrointestinal (Abdomen): normal bowel sounds, soft, nontender, no hepatosplenomegaly Musculoskeletal: Head/Neck/Chest: normocephalic and head atraumatic Neurologic: PERRL, EOMI, accommodation nl, no face palsy, no dysarthria Psychiatric: Orientation: alert and cooperative Results & Data Results & Data ([facility]) Vital Signs (Past 12 Hours) Vital Signs Temp Pulse Resp BP Pulse Ox Pulse Ox 11/09/19 07:43 36.3 C L 57 L 16 149/71 H 95 11/09/19 00:38 36.6 C 60 14 167/89 H 96 11/09/19 00:35 96
[2019-11-09] MEDS: cefTRIAXone SODIUM 1,000 MG in DEXTROSE 5% 50 ML IV SCH (17:14)
[2019-11-10] MEDS: ACETAMINOPHEN 325 MG TAB PO SCH ×2 (00:29→07:49)
[2019-11-10] MEDS: POLYETHYLENE (MIRALAX) 17 GM PACK PO PRN (00:31)
[2019-11-10] MEDS: HEPARIN SOD 5,000 UNIT/0.5 ML VIAL SQ SCH ×2 (06:26→13:26)
[2019-11-10] MEDS: LIDOCAINE 5% 1 PATCH TD SCH (07:49)
[2019-11-10] MEDS: DOCUSATE SODIUM 100 MG CAP PO SCH (07:49)
[2019-11-10] MEDS: PANTOprazole 40 MG TAB PO SCH (07:50)
--- NOTE | 2019-11-10 08:52 | Hospitalist Progress Note ---
Date of Service November 10, 2019 Assessment & Plan (1) Back pain: (2) Abnormal CT of thoracic spine: acute back pain acute T11 compression deformity with 3 mm retropulsion (closed T11 fracture) -This is a 79-year-old female with history of Parkinson's disease dementia who presents with back pain following fall 7 days ago and was found to have an acute T11 compression deformity with 3 mm retropulsion. -Fell onto her backside in the bathroom a week ago, presents with progressive ambulatory dysfunction and worsening pain -CT abd/pelvis with acute T11 compression deformity with [address]ulsion. Lumbar spine CT with lumbar levoscoliosis with degenerative changes as above, most pronounced at L4-L5 -Given narcotics in the ED with resulting lethargy and confusion - avoid when possible. Scheduling Tylenol 100mg Q8H, lidocaine patch, oxycodone 5mg Q6H as needed -admitting team Discussed with Dr. Jacobsen of ortho spine who Recommended IV dexamethasone 4 mg every 8 hours and pain control over the weekend with consideration for surgery if pain does not improve -PT/OT evaluations 11/08/2019: Patient reports back pain feeling much better today. She was seen and examined after ambulating with walker under supervision and to bathroom for bowel movements. Her yanes to be removed because she can demonstrate that she can move. orthopedics recommended to continue IV dexamethasone further. an order has been placed for orthotics for back brace 11/09/2019: Patient's daughter Steffany [phone] was updated. Her wishes for patient to avoid surgery if possible and she would be agreeable for patient to go to physical rehabilitation facility after hospital stay. Patient was seen near noon time after working with therapy. Patient laying flat on the bed. Patient reports she feels miserable but not in acute distress. she reports today she was able to ambulate to bathroom with supervision, but I cannot verify with her nurse at this time. have encouraged patient to accept fitting for back brace once offered to her. will hold the IV solumedrol for now to see if patient can tolerate and ambulate off steroids. 11/10/2019: patient seen in the AM with breakfast at bedside. Hospitalist does not see any back brace in the room. Patient is not in distress. she does report of back pain which is around thoracic spine. breathing on room air, no cardiac or abdominal, or headache symptoms. (3) UTI (urinary tract infection), uncomplicated: -UA abnormal. Patient with incontinence over the past few days when unable to ambulate to the toilet in time. Also with increased frequency of urination -Started empirically on ceftriaxone on 11/06/2019 ; pansensitive Escherichia coli in the urine culture -continue ceftriaxone for now, send repeat UA (4) Parkinson's disease dementia: Tremors from Parkinson's versus Benign Essential Tremors -Not on any medications. Tremors at baseline. Lives at home with , has family support nearby DVT Ppx: SQ heparin Code status: DNR per discussion with patient and daughter as per admitting team PCP: Sera Admission and Anticipated Discharge Date Admission Date: November 06, 2019 Subjective patient seen in the AM with breakfast at bedside. Hospitalist does not see any back brace in the room. Patient is not in distress. she does report of back pain which is around thoracic spine. breathing on room air, no cardiac or abdominal, or headache symptoms. Review of Systems Review of Systems: All systems reviewed & are unremarkable except as noted in Subjective Physical Exam Constitutional: cooperative Eyes: PERRL, conjunctivae normal, anicteric sclerae EOM intact bilaterally ENMT: external ear and nose normal, oropharynx normal Neck: trachea midline, no thyromegaly normal visual inspection Respiratory: normal respiratory effort, lungs clear to auscultation Cardiovascular: Rate/Rhythm: regular rate Gastrointestinal (Abdomen): normal bowel sounds, soft, nontender, no hepatosplenomegaly Musculoskeletal: Head/Neck/Chest: normocephalic and head atraumatic Neurologic: PERRL, EOMI, accommodation nl, no face palsy, no dysarthria Psychiatric: Orientation: alert and cooperative Results & Data Results & Data ([facility]) Vital Signs (Past 12 Hours) Vital Signs Temp Pulse Resp BP Pulse Ox Pulse Ox 11/10/19 07:10 36.3 C L 59 L 16 137/85 98 11/10/19 00:20 98 11/09/19 23:00 36.2 C L 60 15 158/74 H 98
--- NOTE | 2019-11-10 12:49 | Discharge Summary ---
Date of Service November 10, 2019 Admission HPI Per Admitting Provider This is a 79-year-old female with history of Parkinson's disease dementia who presents with back pain following fall 7 days ago. Patient reportedly fell onto her backside in the bathroom a week ago but was able to get up on her own. Denies any head trauma or loss of consciousness. Lives with her son and did not report that she has been experiencing pain until today. Has had difficult time with ambulation, to the point that she has had urinary incontinence is resolved not be able to make it to the toilet. Pain has become markedly worse with movement since yesterday, describing pain as shooting and electrical in nature. Also feels like "something inside" is injured. Has a large bruise on right upper gluteal region but pain mostly localized on left gluteal region. Denies any numbness or paresthesias of lower extremities. Only medication patient takes at home is aspirin and stool softener. Daughter at bedside states that mom is tough and does not like to report any pain or discomfort. Daughter did not know about this until today. Denies any fever, chills, headache, lightheadedness, chest pain, shortness of breath, nausea, vomiting, abdominal pain, diarrhea or constipation. Increased urinary frequency but denies dysuria or hematuria. Principal Diagnosis acute back pain acute T11 compression deformity with 3 mm retropulsion Urinary Tract infection Parkinson's disease dementia Discharge Exam Constitutional comfortable Eyes PERRL, conjunctivae normal, anicteric sclerae EOM intact bilaterally ENMT external ear and nose normal, oropharynx normal Neck trachea midline, no thyromegaly normal visual inspection Respiratory normal respiratory effort, lungs clear to auscultation Cardiovascular Rate/Rhythm: regular rate Gastrointestinal (Abdomen) normal bowel sounds, soft, nontender, no hepatosplenomegaly Musculoskeletal Head/Neck/Chest: normocephalic and head atraumatic Neurologic PERRL, EOMI, accommodation nl, no face palsy, no dysarthria CN's II-XI intact bilaterally (hand tremors) Psychiatric Orientation: alert and cooperative Discharge Data Allergies Allergy/AdvReac Type Severity Reaction Status Date / Time No Known Allergies Allergy Unverified 11/06/19 09:33 Consultations 11/06/19 14:51 ED Decision to Admit Stat 11/06/19 18:05 Consult Case Management - Discharge Planning Routine Consult Orthopedic Surgery Routine Ordered Studies 11/06/19 10:03 CT abd pelvis IV con only Stat CT lumbar spine wo con Stat 11/06/19 13:15 US gallbladder Stat 11/07/19 10:00 MR thoracic spine wo con Urgent 11/07/19 10:01 MR lumbar spine wo con Urgent Hospital Course (1) Back pain: (2) Abnormal CT of thoracic spine: acute back pain acute T11 compression deformity with 3 mm retropulsion (closed T11 fracture) -This is a 79-year-old female with history of Parkinson's disease dementia who presents with back pain following fall 7 days ago and was found to have an acute T11 compression deformity with 3 mm retropulsion. -Fell onto her backside in the bathroom a week ago, presents with progressive ambulatory dysfunction and worsening pain -CT abd/pelvis with acute T11 compression deformity with 3 [address]ropulsion. Lumbar spine CT with lumbar levoscoliosis with degenerative changes as above, most pronounced at L4-L5 -Given narcotics in the ED with resulting lethargy and confusion - avoid when possible. Scheduling Tylenol 100mg Q8H, lidocaine patch, oxycodone 5mg Q6H as needed -admitting team Discussed with Dr. Jacobsen of ortho spine who Recommended IV dexamethasone 4 mg every 8 hours and pain control over the weekend with consideration for surgery if pain does not improve -PT/OT evaluations 11/08/2019: Patient reports back pain feeling much better today. She was seen and examined after ambulating with walker under supervision and to bathroom for bowel movements. Her yanes to be removed because she can demonstrate that she can move. orthopedics recommended to continue IV dexamethasone further. an order has been placed for orthotics for back brace 11/09/2019: Patient's daughter Steffany [phone] was updated. Her wishes for patient to avoid surgery if possible and she would be agreeable for patient to go to physical rehabilitation facility after hospital stay. Patient was seen near noon time after working with therapy. Patient laying flat on the bed. Patient reports she feels miserable but not in acute distress. she reports today she was able to ambulate to bathroom with supervision, but I cannot verify with her nurse at this time. have encouraged patient to accept fitting for back brace once offered to her. will hold the IV solumedrol for now to see if patient can tolerate and ambulate off steroids. 11/10/2019: patient seen in the AM with breakfast at bedside. Hospitalist does not see any back brace in the room. Patient is not in distress. she does report of back pain which is around thoracic spine. breathing on room air, no cardiac or abdominal, or headache symptoms. discharge to [facility]; orthotics had seen patient yesterday on 11/09/2019 to fit for back brace but the patient refused, physical activity as tolerated other prescriptions of oxycodone 5 mg every 6 hours as needed for moderate to severe pain (16 tablets prescribed), acetaminophen 325 mg every 6 hours as needed for pain or fever, lidocaine patch (3) UTI (urinary tract infection), uncomplicated: -UA abnormal. Patient with incontinence over the past few days when unable to ambulate to the toilet in time. Also with increased frequency of urination -Started empirically on ceftriaxone as daily starting on 11/06/2019 ; pansensitive Escherichia coli in the urine culture -11/10/2019 transition from ceftriaxone daily to ciprofloxacin. finish treatment of urinary tract infection of pansensitive E.coli with ciprofloxacin 500 mg twice a day for 3 more days (4) Parkinson's disease dementia: Tremors from Parkinson's versus Benign Essential Tremors -Not on any medications. Tremors at baseline. Lives at home with , has family support nearby -aspirin as 81 mg daily DVT Ppx: SQ heparin Code status: DNR per discussion with patient and daughter as per admitting team PCP: Sera Total Time Total Time Spent Total Time Spent (In Minutes): 40 minutes Discharge Plan Discharge Items Patient Disposition: Transfer Inpatient Rehab Fac Reason For Visit: T11 COMPRESSION DEFORMITY, UTI Discharge Diagnosis: acute back pain acute T11 compression deformity with 3 mm retropulsion Urinary Tract infection Parkinson's disease dementia Condition on Discharge: Fair Activity: Per Instructions section Non-emergency contact: Primary Care Provider Call non-emergency contact if: you have any medication questions Follow-up/Referrals: Chang Abreu MD [Primary Care Provider] - Diet: Regular Diet Texture: Easy to Chew Addtl Attending Provider Instructions: discharge to [facility]; orthotics had seen patient yesterday on 11/09/2019 to fit for back brace but the patient refused, physical activity as tolerated finish treatment of urinary tract infection of pansensitive E.coli with ciprofloxacin 500 mg twice a day for 3 more days other prescriptions of oxycodone 5 mg every 6 hours as needed for moderate to severe pain (16 tablets prescribed), acetaminophen 325 mg every 6 hours as needed for pain or fever, lidocaine patch aspirin 81 mg daily Pending Studies at Discharge: No Stand-Alone Forms: My [facility] Skilled Items Patient informed of condition?: Yes DNR: Yes Discharge Level of Care: Acute rehab Communicable Disease: No Discharge Prognosis: Stable Lines: None Urinary Catheter: No Medications and DC Order Prescriptions: New acetaminophen 325 mg Tablet 325 mg PO Q8H PRN (Reason: fever or pain) 4 Days Qty: 12 RF: 0 ciprofloxacin HCl 500 mg Tablet 500 mg PO BID 3 Days Qty: 6 RF: 0 lidocaine 5 % Adhesive Patch,Medicated 1 patch transdermal QAM 4 Days Qty: 4 RF: 0 oxycodone 5 mg Tablet 5 mg PO Q6H PRN (Reason: moderate to severe pain) 4 Days Qty: 16 RF: 0 aspirin 81 mg tablet,delayed release (DR/EC) 81 mg PO DAILY 30 Days Qty: 30 RF: 0 Continued docusate sodium 100 mg Capsule 100 mg PO UD RF: 0 Discontinued aspirin [Aspirin Low Dose] 81 mg Tablet,Delayed Release (Dr/Ec) 162 - 324 mg PO DAILY RF: 0 Discharge Orders: Discharge Order (Routine); Ordered 11/10/19 Ordered By: Darrell Martinez Admission Data Admit Date/Time: 11/06/19 15:56 Attending Provider: Darrell Martinez Admit Provider: Adam Walker Primary Care Provider: Chang Abreu [facility] ; Adam [facility] ; John Jacobsen
[2019-11-10] MEDS ORDERED: CIPROFLOXACIN 500 MG TAB PO SCH (21:00)
== END 2019-11-10 15:31 | DRG 552 ==
LOC: ED 08:43 → SUATTDRO 15:56 → 3W 15:56